=== PATIENT | male | born 1960 | race Caucasian/White ===

== ENCOUNTER 2019-08-06 16:18 | Inpatient (IN) | payer BC, OTHER ==
[2019-08-06] MEDS ORDERED: Sodium Chloride 0.9% 10 ML Syringe FLUSH PRN (16:46)
[2019-08-06] MEDS ORDERED: Pantoprazole 40 MG Vial IVPUSH ONE (16:46)
--- NOTE | 2019-08-06 16:52 | EDM.PDOC ---
ED HPI GENERAL MEDICAL PROBLEM - General Chief Complaint: Gastrointestinal Problem Stated Complaint: UNCONTROLLABLE BOWEL MOVEMENT Time Seen by Provider: 08/06/19 16:23 Source of Information: Reports: Patient History Limitations: Reports: No Limitations - History of Present Illness INITIAL COMMENTS - FREE TEXT/NARRATIVE: Patient is a 59-year-old male who presents to the emergency department with "uncontrollable diarrhea ". States his symptoms have been going on for approximately 1 week. He describes the stools as loose and "like motor oil ". Stools have been dark since the onset of symptoms. He denies any abdominal pain , nausea, or vomiting. For the last 3 to 4 days, he has been getting increasingly weak and dizzy upon standing. He is incontinent of stool most of the time. States he will get the urge to go, but when he stands up it runs out of him. He estimates that he has a BM every 2 hours. He is not on blood thinners. He has a history of alcohol use, however states he quit 2 weeks ago. He has never had a colonoscopy. He also has a history of hypertension and congestive heart failure, however states he had an echocardiogram done about 2 months ago and that was found to be normal. He is prescribed olmesartan and Lasix, however he has been out of these for the past week. He has no history of gastric ulcers that he is aware of. His primary care provider is Dr. Martinez. - Related Data Allergies Allergy/AdvReac Type Severity Reaction Status Date / Time No Known Allergies Allergy Verified 08/06/19 16:33 Home Meds: Home Meds Olmesartan Medoxomil [Benicar] 20 mg PO DAILY 03/16/18 [History] Furosemide [Lasix] 0 mg PO DAILY 08/06/19 [History] Past Medical History HEENT History: Reports: None Cardiovascular History: Reports: Heart Failure, High Cholesterol, Hypertension, Other (See Below) Other Cardiovascular History: Peripheral edema Respiratory History: Reports: SOB Gastrointestinal History: Reports: None Genitourinary History: Reports: Renal Calculus Musculoskeletal History: Reports: None Neurological History: Reports: None Psychiatric History: Reports: None Endocrine/Metabolic History: Reports: Obesity/BMI 30+ Hematologic History: Reports: None Immunologic History: Reports: None Oncologic (Cancer) History: Reports: None Dermatologic History: Reports: Other (See Below) Other Dermatologic History: Chronic Dry Skin - Infectious Disease History Infectious Disease History: Reports: Chicken Pox, Measles, Mumps - Past Surgical History Head Surgeries/Procedures: Reports: None Social & Family History - Family History Family Medical History: Noncontributory - Tobacco Use Smoking Status *Q: Current Every Day Smoker Years of Tobacco use: 40 Packs/Tins Daily: 1 - Caffeine Use Caffeine Use: Reports: None - Recreational Drug Use Recreational Drug Use: No ED ROS GENERAL - Review of Systems Review Of Systems: See Below Constitutional: Reports: Weakness. Denies: Fever, Chills HEENT: Reports: No Symptoms Respiratory: Reports: No Symptoms. Denies: Shortness of Breath, Cough Cardiovascular: Reports: Lightheadedness. Denies: Chest Pain, Dyspnea on Exertion, Palpitations Endocrine: Reports: No Symptoms GI/Abdominal: Reports: Black Stool, Diarrhea, Stool Incontinence. Denies: Abdominal Pain, Bloody Stool, Hematemesis, Nausea, Vomiting ED EXAM, GI/ABD - Physical Exam Exam: See Below Exam Limited By: No Limitations General Appearance: Alert, WD/WN, No Apparent Distress Respiratory/Chest: No Respiratory Distress, Lungs Clear, Normal Breath Sounds, No Accessory Muscle Use, Chest Non-Tender Cardiovascular: Normal Peripheral Pulses, Regular Rate, Rhythm, No Edema, No Gallop, No JVD, No Murmur, No Rub GI/Abdominal Exam: Normal Bowel Sounds, Soft, Non-Tender, No Organomegaly, No Distention, No Abnormal Bruit, No Mass, Pelvis Stable Rectal (Males) Exam: Normal Rectal Tone, Black Stool, Heme + Stool. No: Bloody Stool Neurological: Alert, Oriented, CN II-XII Intact, Normal Cognition, Normal Gait, Normal Reflexes, No Motor/Sensory Deficits Psychiatric: Normal Affect, Normal Mood Skin Exam: Warm, Dry, Intact, Normal Color, No Rash Course - Vital Signs Last Recorded V/S: Last Vital Signs Temp 98.6 F 08/06/19 20:56 Pulse 81 08/06/19 16:29 Resp 16 08/06/19 20:56 BP 120/74 08/06/19 20:56 Pulse Ox 98 08/06/19 20:56 Orthostatic Blood Pressure [ 84/70 Standing] Orthostatic Blood Pressure [ 118/77 Supine] - Orders/Labs/Meds Orders: Active Orders 24 hr Category Date Time Status Patient Status [ADT] Routine ADT 08/06/19 18:34 Active Antiembolic Devices [RC] PER UNIT ROUTINE Care 08/06/19 18:37 Active Bedrest Bedside Commode [RC] ASDIRECTED Care 08/06/19 18:31 Active Cardiac Monitoring [RC] . DIRECTED Care 08/06/19 16:55 Active Intake and Output [RC] 04,16 Care 08/06/19 18:36 Active Notify Provider Consults [RC] ASDIRECTED Care 08/06/19 18:38 Active Oxygen Therapy [RC] PRN Care 08/06/19 18:34 Active Peripheral IV Care [RC] Q2HR Care 08/06/19 16:46 Active VTE/DVT Education [RC] BID Care 08/06/19 18:34 Active Vital Signs [RC] Q4HR Care 08/06/19 18:34 Active Consult to Case Management/Road Crossing Guard [CONS] Cons 08/06/19 18:31 Active Routine Consult to Physician [CONS] Routine Cons 08/06/19 18:31 Active Nothing per Oral Now Diet [DIET] Diet 08/07/19 Breakfast Active CBC WITH AUTO DIFF [HEME] Q4H Lab 08/06/19 22:31 Ordered CBC WITH AUTO DIFF [HEME] Q4H Lab 08/07/19 02:31 Ordered CBC WITH AUTO DIFF [HEME] Q4H Lab 08/07/19 06:31 Ordered CBC WITH AUTO DIFF [HEME] Q4H Lab 08/07/19 10:31 Ordered CBC WITH AUTO DIFF [HEME] Q4H Lab 08/07/19 14:31 Ordered CBC WITH AUTO DIFF [HEME] Q4H Lab 08/07/19 18:31 Ordered CBC WITH AUTO DIFF [HEME] Q4H Lab 08/07/19 22:31 Ordered MAGNESIUM [CHEM] AM Lab 08/07/19 05:11 Ordered PATIENT RETYPE [BBK] Routine Lab 08/06/19 17:47 Ordered PHOSPHORUS [CHEM] AM Lab 08/07/19 05:11 Ordered Nicotine [Habitrol] Med 08/06/19 19:00 Active 21 mg TRDERM DAILY Pantoprazole [ProTONIX IV] Med 08/06/19 21:00 Active 40 mg IV Q12HR Potassium Chloride [KCl 10 MEQ in Water 100 ML] 10 meq Med 08/06/19 18:00 Active Premix Bag 1 bag IV Q1H Sodium Chloride 0.9% [Normal Saline] 1,000 ml Med 08/06/19 17:00 Active IV ASDIRECTED Sodium Chloride 0.9% [Saline Flush] Med 08/06/19 16:46 Active 10 ml FLUSH ASDIRECTED PRN Antiembolic Hose [OM.PC] Per Unit Routine Oth 08/06/19 18:36 Ordered Peripheral IV Insertion Adult [OM.PC] Stat Oth 08/06/19 16:45 Ordered Resuscitation Status Routine Resus Stat 08/06/19 18:31 Ordered Medication Orders Sodium Chloride (Normal Saline) 1,000 mls @ 999 mls/hr IV ASDIRECTED OFE Last Admin: 08/06/19 17:03 Dose: 999 mls/hr Potassium Chloride 10 meq/ (Premix) 100 mls @ 100 mls/hr IV Q1H OFE Stop: 08/07/19 01:59 Last Admin: 08/06/19 21:21 Dose: 100 mls/hr Infusion: 08/06/19 20:51 Dose: 100 mls/hr Admin: 08/06/19 19:51 Dose: 100 mls/hr Infusion: 08/06/19 18:59 Dose: 100 mls/hr Admin: 08/06/19 17:59 Dose: 100 mls/hr Magnesium Sulfate 4 gm/ Premix 50 mls @ 12.5 mls/hr IV ONETIME ONE Stop: 08/06/19 22:39 Last Admin: 08/06/19 21:16 Dose: 12.5 mls/hr Sodium Chloride (Normal Saline) 1,000 mls @ 250 mls/hr IV ASDIRECTED OFE Last Admin: 08/06/19 20:27 Dose: 250 mls/hr Miscellaneous Information (Remove Patch) 1 ea TRDERM DAILY [facility] Nicotine (Habitrol) 21 mg TRDERM DAILY OFE Last Admin: 08/06/19 20:53 Dose: Not Given Pantoprazole Sodium (Protonix Iv) 40 mg IV Q12HR OFE Last Admin: 08/06/19 21:18 Dose: 40 mg Sodium Chloride (Saline Flush) 10 ml FLUSH ASDIRECTED PRN PRN Reason: Keep Vein Open Last Admin: 08/06/19 17:04 Dose: 10 ml Labs: Laboratory Tests 08/06/19 08/06/19 08/06/19 Range/Units 16:59 16:59 16:59 WBC 5.45 (4.23-9.07) K/mm3 RBC 3.16 L (4.63-6.08) M/mm3 Hgb 9.9 L (13.7-17.5) gm/dl Hct 30.2 L (40.1-51.0) % MCV 95.6 H (79.0-92.2) fl MCH 31.3 (25.7-32.2) pg MCHC 32.8 (32.2-35.5) g/dl RDW Std Deviation 53.0 H (35.1-43.9) fL Plt Count 85 L (163-337) K/mm3 MPV 9.2 L (9.4-12.3) fl Neut % (Auto) 71.7 H (34.0-67.9) % Lymph % (Auto) 14.1 L (21.8-53.1) % [place] % (Auto) 11.9 (5.3-12.2) % Eos % (Auto) 1.5 (0.8-7.0) Baso % (Auto) 0.2 (0.1-1.2) % Neut # (Auto) 3.91 (1.78-5.38) K/mm3 Lymph # (Auto) 0.77 L (1.32-3.57) K/mm3 [place] # (Auto) 0.65 (0.30-0.82) K/mm3 Eos # (Auto) 0.08 (0.04-0.54) K/mm3 Baso # (Auto) 0.01 (0.01-0.08) K/mm3 Manual Slide Review Abnormal smear Sodium 132 L (136-145) mEq/L Potassium 2.7 L (3.5-5.1) mEq/L Chloride 96 L (98-107) mEq/L Carbon Dioxide 19 L (21-32) mEq/L Anion Gap 19.7 H (5-15) BUN 43 H (7-18) mg/dL Creatinine 1.9 H (0.7-1.3) mg/dL Est Cr Clr Drug Dosing 45.69 mL/min Estimated GFR (MDRD) 37 (>60) mL/min BUN/Creatinine Ratio 22.6 H (14-18) Glucose 129 H (74-106) mg/dL Calcium 8.8 (8.5-10.1) mg/dL Magnesium 0.8 L (1.8-2.4) mg/dl Total Bilirubin 0.7 (0.2-1.0) mg/dL AST 32 (15-37) U/L ALT 26 (16-63) U/L Alkaline Phosphatase 204 H (46-116) U/L C-Reactive Protein 6.7 H* (<1.0) mg/dL Total Protein 8.2 (6.4-8.2) g/dl Albumin 3.0 L (3.4-5.0) g/dl Globulin 5.2 gm/dL Albumin/Globulin Ratio 0.6 L (1-2) Blood Type A POSITIVE Gel Antibody Screen Negative Meds: Medications Generic Name Dose Route Start Last Admin Trade Name Freq PRN Reason Stop Dose Admin Sodium Chloride 1,000 mls @ 999 mls/hr 08/06/19 17:00 08/06/19 17:03 Normal Saline IV 999 mls/hr ASDIRECTED OFE Administration Potassium Chloride 10 meq/ 100 mls @ 100 mls/hr 08/06/19 18:00 08/06/19 21:21 Premix IV 08/07/19 01:59 100 mls/hr Q1H OFE Administration Magnesium Sulfate 4 gm/ Premix 50 mls @ 12.5 mls/hr 08/06/19 18:40 08/06/19 21:16 IV 08/06/19 22:39 12.5 mls/hr ONETIME ONE Administration Sodium Chloride 1,000 mls @ 250 mls/hr 08/06/19 20:30 08/06/19 20:27 Normal Saline IV 250 mls/hr ASDIRECTED OFE Administration Miscellaneous Information 1 ea 08/07/19 09:00 Remove Patch TRDERM DAILY OFE Nicotine 21 mg 08/06/19 19:00 08/06/19 20:53 Habitrol TRDERM Not Given DAILY OFE Pantoprazole Sodium 40 mg 08/06/19 21:00 08/06/19 21:18 Protonix Iv IV 40 mg Q12HR OFE Administration Sodium Chloride 10 ml 08/06/19 16:46 08/06/19 17:04 Saline Flush FLUSH 10 ml ASDIRECTED PRN Administration Keep Vein Open Discontinued Medications Generic Name Dose Route Start Last Admin Trade Name Danya PRN Reason Stop Dose Admin Magnesium Sulfate 4 gm/ Premix 50 mls @ 12.5 mls/hr 08/06/19 17:51 08/06/19 17:58 IV 08/06/19 21:50 12.5 mls/hr ONETIME ONE Administration Lactated Ringer's 1,000 mls @ 999 mls/hr 08/06/19 18:15 Ringers, Lactated IV ASDIRECTED OFE Pantoprazole Sodium 80 mg 08/06/19 16:46 08/06/19 17:03 Protonix Iv IVPUSH 08/06/19 16:47 80 mg BOLUS ONE Administration - Re-Assessments/Exams Free Text/Narrative Re-Assessment/Exam: Patient's history is suggestive of an upper GI bleed. Hemoccult completed at bedside was found to be grossly positive for occult blood. Stool was black and tarry in nature. Ordered a CBC, CMP, CRP, magnesium, type and screen, urinalysis, EKG, chest x-ray. We will give him a liter bolus of NS as well as Protonix 80 mg IV. 08/06/19 1800 Hematology is significant for hemoglobin low at 9.9, platelet low at 85, sodium 132, potassium 2.7, chloride 96, CO2 19, anion gap 19.7, BUN 43, creatinine 1.9 , magnesium0.8, alk phos high 204, CRP 6.7. I have ordered KCl 10 mEq IV x 8 bags and magnesium 4 g IV. Case discussed with on-call general surgeon, Dr. Reid. He recommend that we contact the hospitalist for admission and correction of his electrolyte abnormalities. He will consult on the patient. Called and spoke with Dr. Engel, hospitalist parks and recreation worker. She accepted the patient for admission. Departure - Departure Time of Disposition: 18:00 Disposition: Home, Self-Care 01 Condition: Good Clinical Impression: Upper GI bleed - Discharge Information Sepsis Event Note (ED) - Evaluation Sepsis Screening Result: No Definite Risk - Focused Exam Vital Signs: Vital Signs Temp Pulse Resp BP Pulse Ox 08/06/19 16:34 126/85 08/06/19 16:29 97.2 F 81 16 95 - My Orders Last 24 Hours: My Active Orders 08/06/19 16:45 Peripheral IV Insertion Adult [OM.PC] Stat 08/06/19 16:46 Peripheral IV Care [RC] Q2HR Sodium Chloride 0.9% [Saline Flush] 10 ml FLUSH ASDIRECTED PRN 08/06/19 16:55 Cardiac Monitoring [RC] . DIRECTED 08/06/19 17:00 Sodium Chloride 0.9% [Normal Saline] 1,000 ml IV ASDIRECTED 08/06/19 17:47 PATIENT RETYPE [BBK] Routine 08/06/19 18:00 Potassium Chloride [KCl 10 MEQ in Water 100 ML] 10 meq Premix Bag 1 bag IV Q1H - Assessment/Plan Last 24 Hours: My Active Orders 08/06/19 16:45 Peripheral IV Insertion Adult [OM.PC] Stat 08/06/19 16:46 Peripheral IV Care [RC] Q2HR Sodium Chloride 0.9% [Saline Flush] 10 ml FLUSH ASDIRECTED PRN 08/06/19 16:55 Cardiac Monitoring [RC] . DIRECTED 08/06/19 17:00 Sodium Chloride 0.9% [Normal Saline] 1,000 ml IV ASDIRECTED 08/06/19 17:47 PATIENT RETYPE [BBK] Routine 08/06/19 18:00 Potassium Chloride [KCl 10 MEQ in Water 100 ML] 10 meq Premix Bag 1 bag IV Q1H
[2019-08-06] MEDS ORDERED: Sodium Chloride 0.9% 1,000 ML IV SCH (17:00)
[2019-08-06] MEDS ORDERED: Magnesium Sulfate/Water 4 GM in Premix Bag 1 BAG IV ONE ×2 (17:51→18:40)
[2019-08-06] MEDS: Potassium Chloride 10 MEQ in Premix Bag 1 BAG IV SCH ×5 (17:59→23:33)
[2019-08-06] MEDS ORDERED: Lactated Ringers 1,000 ML IV SCH (18:15)
--- NOTE | 2019-08-06 20:22 | PCM.HP.2 ---
H&P History of Present Illness - General Date of Service: 08/06/19 Admit Problem/Dx: Admission Diagnosis/Problem Admission Diagnosis/Problem Melena - History of Present Illness Initial Comments - Free Text/Narative: This is a 59-year-old male with past medical history of congestive heart failure and alcoholism who comes to the emergency department complaining of continuous melanous stools since Saturday of this week. As per patient this came on suddenly while he was sitting down. He has been unable to control his bowel movements from 6-7/day and 3-5/night. Denies any prior episodes, colonoscopy or family history of colon cancer. - Related Data Allergies/Adverse Reactions: Allergies Allergy/AdvReac Type Severity Reaction Status Date / Time No Known Allergies Allergy Verified 08/06/19 16:33 Home Medications: Home Meds Olmesartan Medoxomil [Benicar] 20 mg PO DAILY 03/16/18 [History] Furosemide [Lasix] 0 mg PO DAILY 08/06/19 [History] Past Medical History HEENT History: Reports: None Cardiovascular History: Reports: Heart Failure, High Cholesterol, Hypertension, Other (See Below) Other Cardiovascular History: Peripheral edema Respiratory History: Reports: SOB Gastrointestinal History: Reports: None Genitourinary History: Reports: Renal Calculus Musculoskeletal History: Reports: None Neurological History: Reports: None Psychiatric History: Reports: None Endocrine/Metabolic History: Reports: Obesity/BMI 30+ Hematologic History: Reports: None Immunologic History: Reports: None Oncologic (Cancer) History: Reports: None Dermatologic History: Reports: Other (See Below) Other Dermatologic History: Chronic Dry Skin - Infectious Disease History Infectious Disease History: Reports: Chicken Pox, Measles, Mumps - Past Surgical History Head Surgeries/Procedures: Reports: None Social & Family History - Family History Family Medical History: Noncontributory - Tobacco Use Smoking Status *Q: Current Every Day Smoker Years of Tobacco use: 40 Packs/Tins Daily: 1 - Caffeine Use Caffeine Use: Reports: None - Recreational Drug Use Recreational Drug Use: No H&P Review of Systems - Review of Systems: Review Of Systems: See Below General: Reports: Weakness. Denies: Fever, Chills, Malaise, Fatigue, Night Sweats, Diaphoresis, Decreased Appetite, Weight Loss, Weight Gain HEENT: Denies: Dysphasia, Rhinitis, Post Nasal Drip, Sinus Congestion, Sore Throat, Vertigo, Visual Changes Pulmonary: Denies: Shortness of Breath, Wheezing, Pleuritic Chest Pain, Cough, Sputum, Hemoptysis Cardiovascular: Reports: Lightheadedness. Denies: Chest Pain, Palpitations, Dyspnea on Exertion, Orthopnea, PND, Edema, Syncope, Claudication, Blood Pressure Problem Gastrointestinal: Reports: Black Stool, Diarrhea, Melena, Stool Incontinence. Denies: Abdominal Pain, Anorexia, Bloody Stool, Constipation, Decreased Appetite , Difficulty Swallowing, Distension, Flatus, Hematemesis, Hematochezia, Nausea, Vomiting Genitourinary: Denies: Dysuria, Frequency, Burning, Pain, Urgency, Incontinence Musculoskeletal: Denies: Joint Pain, Joint Swelling, Muscle Pain, Muscle Stiffness Skin: Reports: Dryness, Pruritis, Rash, Wound, Change in Color, Lumps, Urticaria Psychiatric: Denies: Confusion, Depression, Mood Lability, Anxiety, Agitation Neurological: Denies: Confusion, Dizziness, Headache, Numbness, Paresthesia Exam - Exam Exam: See Below - Vital Signs Vital Signs: Last Vital Signs Temp 97.2 F 08/06/19 16:29 Pulse 81 08/06/19 16:29 Resp 16 08/06/19 16:29 BP 126/85 08/06/19 16:34 Pulse Ox 95 08/06/19 16:29 Weight: 108.862 kg - Exam Quality Assessment: Skin Breakdown. No: Supplemental Oxygen, Central Line/PICC , Urinary Catheter, DVT Prophylaxis General: Alert, Oriented, Cooperative. No: Mild Distress HEENT: Other (missing multiple teeth, halitosis). No: Conjunctiva Clear ( injected) Neck: Supple, Trachea Midline, Full Range of Motion. No: Lymphadenopathy Lungs: Clear to Auscultation. No: Crackles, Rales, Rhonchi, Rub, Wheezing Cardiovascular: Regular Rate, Regular Rhythm. No: Systolic Murmur, Diastolic Murmur, Rubs, Gallop/S3, Gallop/S4 GI/Abdominal Exam: Normal Bowel Sounds, Distended. No: Guarding, Rigid, Rebound ( fluid wave) Back Exam: Full Range of Motion Extremities: Pedal Edema Skin: Other (actinic keratosis lesions on both arms, scaling dry lesions throughout) Psychiatric: Alert Physical Exam Comments:: SKIN: - Severely dry throughout with multiple scaling areas - Previous fistulization scars on left axilla - Right groin with yellowish plaque and epidermal breakdown - Multiple stigmas of scarring - Lesions on BL arms appear like actinic keratosis OVERALL APPEARANCE: - Disheveled and unkept - Patient Data Result Diagrams: 08/07/19 14:43 08/07/19 10:29 Sepsis Event Note - Evaluation Sepsis Screening Result: No Definite Risk - Problem List (1) Upper GI bleed SNOMED Code(s): 71326521 ICD Code: K92.2 - GASTROINTESTINAL HEMORRHAGE, UNSPECIFIED Status: Acute Current Visit: Yes (2) Dry skin dermatitis SNOMED Code(s): 122665042 ICD Code: L85.3 - XEROSIS CUTIS Status: Acute Current Visit: Yes (3) Alcohol abuse SNOMED Code(s): 38096714 ICD Code: F10.10 - ALCOHOL ABUSE, UNCOMPLICATED Status: Acute Current Visit: Yes (4) Smoker SNOMED Code(s): 18711803 ICD Code: F17.200 - NICOTINE DEPENDENCE, UNSPECIFIED, UNCOMPLICATED Status : Acute Current Visit: Yes (5) Hypertension SNOMED Code(s): 80309555 ICD Code: I10 - ESSENTIAL (PRIMARY) HYPERTENSION Status: Acute Current Visit: No Qualifiers: Hypertension type: essential hypertension Qualified Code(s): I10 - Essential (primary) hypertension (6) Hyponatremia SNOMED Code(s): 33257848 ICD Code: E87.1 - HYPO-OSMOLALITY AND HYPONATREMIA Status: Acute Current Visit: Yes (7) Hypokalemia SNOMED Code(s): 43845546 ICD Code: E87.6 - HYPOKALEMIA Status: Acute Current Visit: Yes (8) Hypophosphatemia SNOMED Code(s): 1330614 ICD Code: E83.39 - OTHER DISORDERS OF PHOSPHORUS METABOLISM Status: Acute Current Visit: Yes (9) Hypomagnesemia SNOMED Code(s): 086553952 ICD Code: E83.42 - HYPOMAGNESEMIA Status: Acute Current Visit: Yes (10) Acute kidney injury SNOMED Code(s): 75992930, 98168702 ICD Code: N17.9 - ACUTE KIDNEY FAILURE, UNSPECIFIED Status: Acute Current Visit: Yes (11) Thrombocytopenia SNOMED Code(s): 067393961 ICD Code: D69.6 - THROMBOCYTOPENIA, UNSPECIFIED Status: Acute Current Visit: Yes (12) Axillary hidradenitis suppurativa SNOMED Code(s): 327194231 ICD Code: L73.2 - HIDRADENITIS SUPPURATIVA Status: Acute Current Visit: Yes (13) Poor personal hygiene SNOMED Code(s): 880686497 ICD Code: R46.0 - VERY LOW LEVEL OF PERSONAL HYGIENE Status: Acute Current Visit: Yes (14) Orthostatic hypotension SNOMED Code(s): 03544421 ICD Code: I95.1 - ORTHOSTATIC HYPOTENSION Status: Acute Current Visit: Yes Problem List Initiated/Reviewed/Updated: Yes Assessment/Plan Comment:: ASSESSMENT - Multiple melena episodes prior to admission - Daily drinker and smoker up to 2 weeks ago, currently not drinking and smoking only 1 cigarette a day - Hb on admission 9.9 with thrombocytopenia - Na 132, K 2.7, Cl 96, CO2 19, Mg 0.8, PO4 1.5 and GFR 37 - Patient appears very disheveled - States he moved in to a trailer about 5 days ago - Has not taken a shower in over a week as per patient, appears to be longer - Equivocal heart failure history, patient states " I used to have it but not anymore" Upper GI bleed Alcohol abuse Orthostatic hypotension Thrombocytopenia - Consult surgery for endoscopic evaluation - Bowel prep to start today - Scheduled IV pantoprazole BID - Trend Hb every 4 hours - Goal Hb > 8 - Abdominal US to evaluate portal circulation and liver parenchyma - [facility] protocol - Spiritual care consult - Case management consult Acute kidney injury Hyponatremia Hypokalemia Hypomagnesemia Hypophosphatemia - Replace volume with NS - Replace electrolytes - Monitor urine output - Renally dosed medications - Repeat labs as needed Orthostatic hypotension Hypertension - Replace volume with NS - Hold home medications Dry skin dermatitis - Request records Smoker - Nicotine patch Poor personal hygiene Hypoalbuminemia - information services tech consult - Dietary consult PROPHYLAXIS DVT- Pharmacologic contraindicated, compression stockings GI- Pantoprazole IV BID CODE STATUS: FULL CODE DISPOSITION: Patient will be admitted to ICU for monitorization, endoscopies likely to be performed tomorrow. - Mortality Measure Prognosis:: Good
[2019-08-06] MEDS: Sodium Chloride 0.9% 1,000 ML IV SCH (20:27)
[2019-08-06] MEDS: Nicotine 21 MG/24 Hr Patch TRDERM SCH (20:53)
--- NOTE | 2019-08-06 21:02 | US ---
Abdominal ultrasound: Multiple real-time images of the abdomen were obtained. Comparison: No previous abdominal imaging is available. Findings: Liver shows no focal parenchymal abnormality. Gallbladder contains no shadowing gallstones. No gallbladder wall thickening or biliary duct dilatation is seen. There are some episodes of reversal of flow within the inferior vena cava raising the possibility of right heart dysfunction. Please correlate. Portal vein shows normal hepatopedal flow. Pancreas that is seen appears unremarkable. Right kidney shows no hydronephrosis or mass and has a length of 13.3 cm. Left kidney shows no hydronephrosis or mass. Left kidney measures 13.0 cm in length. Aorta not optimally seen. No discrete aneurysm is appreciated. Spleen size measures at the upper limits of normal at 13.0 cm. Impression: 1. Some episodes of reversal of flow within the inferior vena cava raising the possibility of right heart dysfunction. Please correlate. 2. Normal hepatopedal flow within the main portal vein. 3. Spleen size at the upper limits of normal at 13.0 cm. 4. No additional abnormality is appreciated on abdominal ultrasound exam. Diagnostic code #3 This report was dictated in MDT
[2019-08-06] MEDS: Pantoprazole 40 MG Vial IV SCH (21:18)
[2019-08-06] MEDS ORDERED: Polyethylene Glycol/Electrolytes 4,000 ML Bottle PO ONE (21:54)
[2019-08-07] MEDS: Potassium Chloride 10 MEQ in Premix Bag 1 BAG IV SCH ×9 (00:35→19:47)
[2019-08-07] MEDS: Sodium Chloride 0.9% 1,000 ML IV SCH ×3 (04:51→13:24)
[2019-08-07] MEDS: Pantoprazole 40 MG Vial IV SCH ×2 (08:59→21:27)
--- NOTE | 2019-08-07 11:02 | PCM.PREANE ---
Preanesthetic Assessment - Procedure Proposed Procedure: EGD posssible Colonoscopy - Anesthesia/Transfusion/Family Hx Anesthesia History: Prior Anesthesia Without Reaction Family History of Anesthesia Reaction: No Transfusion History: No Prior Transfusion(s) - Review of Systems General: No Symptoms Pulmonary: Cough (Chronic, Smoker 1 ppd, none x 1 week. Productive at times. ) Cardiovascular: No Symptoms (History of CHF. Patient states had ECHO and was told his heart is normal. ECHO report 2019 Normal LV and RV systolic function, Technically difficult study documentation. ) Gastrointestinal: Diarrhea, Melena Neurological: No Symptoms Other: Reports: None (ETHO none x 2 weeks per patient. Thrombocytopenia. Electrolyte abnormalities. ) - Physical Assessment NPO Status Date: 08/07/19 NPO Status Time: 09:00 (Prep) Vital Signs: Last Vital Signs Temp 36.9 C 08/07/19 04:00 Pulse 74 08/07/19 08:00 Resp 16 08/07/19 08:00 BP 111/82 08/07/19 08:08 Pulse Ox 95 08/07/19 08:07 Orthostatic Blood Pressure [ 84/70 Standing] Orthostatic Blood Pressure [ 118/77 Supine] Height: 1.8 m Weight: 102.965 kg ASA Class: 3E Mental Status: Alert & Oriented x3 Airway Class: Mallampati = 2 Dentition: Reports: Broken Tooth/Teeth, Missing Tooth/Teeth Thyro-Mental Finger Breadths: 3 Mouth Opening Finger Breadths: 3 ROM/Head Extension: Full Lungs: Clear to Auscultation, Normal Respiratory Effort Cardiovascular: Regular Rate, Regular Rhythm - Lab Values: Laboratory Last Values WBC 5.46 K/mm3 (4.23-9.07) 08/07/19 06:30 RBC 2.81 M/mm3 (4.63-6.08) L 08/07/19 06:30 Hgb 8.7 gm/dl (13.7-17.5) L 08/07/19 06:30 Hct 27.3 % (40.1-51.0) L 08/07/19 06:30 MCV 97.2 fl (79.0-92.2) H 08/07/19 06:30 MCH 31.0 pg (25.7-32.2) 08/07/19 06:30 MCHC 31.9 g/dl (32.2-35.5) L 08/07/19 06:30 RDW Std Deviation 53.9 fL (35.1-43.9) H 08/07/19 06:30 Plt Count 68 K/mm3 (163-337) L 08/07/19 06:30 MPV 9.3 fl (9.4-12.3) L 08/07/19 06:30 Neut % (Auto) 73.2 % (34.0-67.9) H 08/07/19 06:30 Lymph % (Auto) 14.3 % (21.8-53.1) L 08/07/19 06:30 [place] % (Auto) 10.3 % (5.3-12.2) 08/07/19 06:30 Eos % (Auto) 1.5 (0.8-7.0) 08/07/19 06:30 Baso % (Auto) 0.2 % (0.1-1.2) 08/07/19 06:30 Neut # (Auto) 4.00 K/mm3 (1.78-5.38) 08/07/19 06:30 Lymph # (Auto) 0.78 K/mm3 (1.32-3.57) L 08/07/19 06:30 [place] # (Auto) 0.56 K/mm3 (0.30-0.82) 08/07/19 06:30 Eos # (Auto) 0.08 K/mm3 (0.04-0.54) 08/07/19 06:30 Baso # (Auto) 0.01 K/mm3 (0.01-0.08) 08/07/19 06:30 Manual Slide Review Abnormal smear 08/07/19 06:30 PT 11.4 SECONDS (9.7-12.0) 08/06/19 19:00 INR 1.05 08/06/19 19:00 Puncture Site Lt radial 08/06/19 20:21 ABG pH 7.37 (7.35-7.45) 08/06/19 20:21 ABG pCO2 34.6 mmHg (35.0-45.0) L 08/06/19 20:21 ABG pO2 80.0 mmHg (80.0-100.0) 08/06/19 20:21 ABG HCO3 19.7 meq/L (22.0-26.0) L 08/06/19 20:21 ABG O2 Saturation 94.8 % (96.0-97.0) L 08/06/19 20:21 ABG Base Excess -4.4 (-2-2.0) L 08/06/19 20:21 Travis Test Positive 08/06/19 20:21 O2 Delivery Device Room air 08/06/19 20:21 FiO2 0.00 % (21.00-100.00) L 08/06/19 20:21 Sodium 131 mEq/L (136-145) L 08/07/19 03:29 Potassium 3.3 mEq/L (3.5-5.1) L 08/07/19 03:29 Chloride 97 mEq/L (98-107) L 08/07/19 03:29 Carbon Dioxide 20 mEq/L (21-32) L 08/07/19 03:29 Anion Gap 17.3 (5-15) H 08/07/19 03:29 BUN 33 mg/dL (7-18) H 08/07/19 03:29 Creatinine 1.7 mg/dL (0.7-1.3) H 08/07/19 03:29 Est Cr Clr Drug Dosing 51.06 mL/min 08/07/19 03:29 Estimated GFR (MDRD) 42 mL/min (>60) 08/07/19 03:29 BUN/Creatinine Ratio 19.4 (14-18) H 08/07/19 03:29 Glucose 110 mg/dL (74-106) H 08/07/19 03:29 Calcium 8.4 mg/dL (8.5-10.1) L 08/07/19 03:29 Phosphorus 1.3 mg/dL (2.6-4.7) L 08/07/19 03:29 Magnesium 2.6 mg/dl (1.8-2.4) H 08/07/19 03:29 Total Bilirubin 0.7 mg/dL (0.2-1.0) 08/06/19 16:59 GGT 112 U/L (15-85) H 08/06/19 19:00 AST 32 U/L (15-37) 08/06/19 16:59 ALT 26 U/L (16-63) 08/06/19 16:59 Alkaline Phosphatase 204 U/L (46-116) H 08/06/19 16:59 C-Reactive Protein 6.7 mg/dL (<1.0) H* 08/06/19 16:59 Total Protein 8.2 g/dl (6.4-8.2) 08/06/19 16:59 Albumin 3.0 g/dl (3.4-5.0) L 08/06/19 16:59 Globulin 5.2 gm/dL 08/06/19 16:59 Albumin/Globulin Ratio 0.6 (1-2) L 08/06/19 16:59 Urine Color Yellow (Yellow) 08/06/19 19:44 Urine Appearance Clear (Clear) 08/06/19 19:44 Urine pH 6.0 (5.0-8.0) 08/06/19 19:44 Ur Specific [place] 1.015 (1.005-1.030) 08/06/19 19:44 Urine Protein 2+ (Negative) H 08/06/19 19:44 Urine Glucose (UA) Negative (Negative) 08/06/19 19:44 Urine Ketones Trace (Negative) H 08/06/19 19:44 Urine Occult Blood 2+ (Negative) H 08/06/19 19:44 Urine Nitrite Negative (Negative) 08/06/19 19:44 Urine Bilirubin Negative (Negative) 08/06/19 19:44 Urine Urobilinogen 0.2 (0.2-1.0) 08/06/19 19:44 Ur Leukocyte Esterase Negative (Negative) 08/06/19 19:44 Urine RBC 5-10 /hpf (0-5) H 08/06/19 19:44 Urine WBC 0-5 /hpf (0-5) 08/06/19 19:44 Ur Squamous Epith Cells 0-5 /hpf (0-5) 08/06/19 19:44 Urine Bacteria Few /hpf (FEW) 08/06/19 19:44 Urine Mucus Few /hpf (FEW) 08/06/19 19:44 Urine Opiates Screen Negative (ECMEGJ=976) 08/06/19 19:44 Ur Buprenorphine Scrn Negative (CUTOFF=10) 08/06/19 19:44 Ur Oxycodone Screen Negative (JCD8TJ=525) 08/06/19 19:44 Urine Methadone Screen Negative (BCW0CO=215) 06/11/20 19:44 Ur Propoxyphene Screen Negative (RSUVFV=267) 08/06/19 19:44 Ur Barbiturates Screen Negative (PVXIJA=069) 08/06/19 19:44 Ur Tricyclics Screen Negative (DUXDQG=343) 08/06/19 19:44 Ur Phencyclidine Scrn Negative (CUTOFF=25) 08/06/19 19:44 Ur Amphetamine Screen Negative (XPMOLC=773) 08/06/19 19:44 U Methamphetamines Scrn Negative (DOPYZL=990) 08/06/19 19:44 U Benzodiazepines Scrn Negative (XAORNO=865) 08/06/19 19:44 U Cocaine Metab Screen Negative (GSNWFM=555) 08/06/19 19:44 U Marijuana (THC) Screen Negative (CUTOFF=50) 08/06/19 19:44 Ethyl Alcohol 0.00 gm% (0.00) 08/06/19 19:00 Blood Type A POSITIVE 08/06/19 16:59 Gel Antibody Screen Negative 08/06/19 16:59 - Allergies Allergies/Adverse Reactions: Allergies Allergy/AdvReac Type Severity Reaction Status Date / Time No Known Allergies Allergy Verified 08/06/19 16:33 - Acknowledgements Anesthesia Type Planned: MAC Pt an Appropriate Candidate for the Planned Anesthesia: Yes Alternatives and Risks of Anesthesia Discussed w Pt/Guardian: Yes Pt/Guardian Understands and Agrees with Anesthesia Plan: Yes Additional Comments: Electrolyte abnormalities optimized per hospitalist service. Dr. Reid aware of thrombocytopenia and wishes to proceed with EGD as soon as possible. PreAnesthesia Questionnaire HEENT History: Reports: None Other HEENT History: 3 months ago, pt woke up and had no vision in L eye Cardiovascular History: Reports: Heart Failure, High Cholesterol, Hypertension, Other (See Below) Other Cardiovascular History: Peripheral edema Respiratory History: Reports: SOB Gastrointestinal History: Reports: None Genitourinary History: Reports: Renal Calculus Musculoskeletal History: Reports: None Neurological History: Reports: None Psychiatric History: Reports: None Endocrine/Metabolic History: Reports: Obesity/BMI 30+ Hematologic History: Reports: None Immunologic History: Reports: None Oncologic (Cancer) History: Reports: None Dermatologic History: Reports: Other (See Below) Other Dermatologic History: Chronic Dry Skin - Infectious Disease History Infectious Disease History: Reports: Chicken Pox, Measles, Mumps - Past Surgical History Head Surgeries/Procedures: Reports: None - SUBSTANCE USE Smoking Status *Q: Current Every Day Smoker Tobacco Use Within Last Twelve Months: Cigarettes Date of Last Drink: 07/23/19 Recreational Drug Use History: No - HOME MEDS Home Medications: Home Meds Olmesartan Medoxomil [Benicar] 20 mg PO DAILY 03/16/18 [History] Furosemide [Lasix] 0 mg PO DAILY 08/06/19 [History] - CURRENT (IN HOUSE) MEDS Current Meds: Current Medications Sodium Chloride (Normal Saline) 1,000 mls @ 250 mls/hr IV ASDIRECTED [facility] Last Admin: 08/07/19 09:07 Dose: 250 mls/hr Miscellaneous Information (Remove Patch) 1 ea TRDERM DAILY [facility] Nicotine (Habitrol) 21 mg TRDERM DAILY [facility] Last Admin: 08/06/19 20:53 Dose: Not Given Pantoprazole Sodium (Protonix Iv) 40 mg IV Q12HR [facility] Last Admin: 08/07/19 08:59 Dose: 40 mg Sodium Chloride (Saline Flush) 10 ml FLUSH ASDIRECTED PRN PRN Reason: Keep Vein Open Last Admin: 08/06/19 17:04 Dose: 10 ml Discontinued Medications Sodium Chloride (Normal Saline) 1,000 mls @ 999 mls/hr IV ASDIRECTED [facility] Last Admin: 08/06/19 17:03 Dose: 999 mls/hr Magnesium Sulfate 4 gm/ Premix 50 mls @ 12.5 mls/hr IV ONETIME ONE Stop: 08/06/19 21:50 Last Admin: 08/06/19 17:58 Dose: 12.5 mls/hr Potassium Chloride 10 meq/ (Premix) 100 mls @ 100 mls/hr IV Q1H [facility] Stop: 08/07/19 01:59 Last Admin: 08/07/19 03:54 Dose: 100 mls/hr Lactated Ringer's (Ringers, Lactated) 1,000 mls @ 999 mls/hr IV ASDIRECTED [facility] Magnesium Sulfate 4 gm/ Premix 50 mls @ 12.5 mls/hr IV ONETIME ONE Stop: 08/06/19 22:39 Last Admin: 08/06/19 21:16 Dose: 12.5 mls/hr Pantoprazole Sodium (Protonix Iv) 80 mg IVPUSH BOLUS ONE Stop: 08/06/19 16:47 Last Admin: 08/06/19 17:03 Dose: 80 mg Polyethylene Glycol/Electrolytes (Golytely) 4,000 ml PO ONETIME ONE Stop: 08/06/19 21:55 Last Admin: 08/06/19 22:28 Dose: 4,000 ml
--- NOTE | 2019-08-07 11:55 | PCM.PN ---
- General Info Date of Service: 08/07/19 Subjective Update: Feeling OK Slept OK Tolerating bowel prep - Patient Data Vitals - Most Recent: Last Vital Signs Temp 98.5 F 08/07/19 04:00 Pulse 74 08/07/19 08:00 Resp 16 08/07/19 08:00 BP 111/82 08/07/19 08:08 Pulse Ox 95 08/07/19 08:07 Weight - Most Recent: 108.862 kg - Exam Physical Findings Comments:: Quality Assessment: Skin Breakdown. No: Supplemental Oxygen, Central Line/PICC , Urinary Catheter, DVT Prophylaxis General: Alert, Oriented, Cooperative. No: Mild Distress HEENT: Other (missing multiple teeth, halitosis). No: Conjunctiva Clear ( injected) Neck: Supple, Trachea Midline, Full Range of Motion. No: Lymphadenopathy Lungs: Clear to Auscultation. No: Crackles, Rales, Rhonchi, Rub, Wheezing Cardiovascular: Regular Rate, Regular Rhythm. No: Systolic Murmur, Diastolic Murmur, Rubs, Gallop/S3, Gallop/S4 GI/Abdominal Exam: Normal Bowel Sounds, Distended. No: Guarding, Rigid, Rebound ( fluid wave) Back Exam: Full Range of Motion Extremities: Pedal Edema Skin: Other (actinic keratosis lesions on both arms, scaling dry lesions throughout) Psychiatric: Alert Physical Exam Comments:: SKIN: - Severely dry throughout with multiple scaling areas - Previous fistulization scars on left axilla - Right groin with yellowish plaque and epidermal breakdown - Multiple stigmas of scarring - Lesions on BL arms appear like actinic keratosis OVERALL APPEARANCE: - Disheveled and unkept Sepsis Event Note - Evaluation Sepsis Screening Result: No Definite Risk - Problem List & Annotations (1) Upper GI bleed SNOMED Code(s): 83942282 Code(s): K92.2 - GASTROINTESTINAL HEMORRHAGE, UNSPECIFIED Status: Acute Current Visit: Yes (2) Dry skin dermatitis SNOMED Code(s): 957137532 Code(s): L85.3 - XEROSIS CUTIS Status: Acute Current Visit: Yes (3) Alcohol abuse SNOMED Code(s): 14400128 Code(s): F10.10 - ALCOHOL ABUSE, UNCOMPLICATED Status: Acute Current Visit: Yes (4) Smoker SNOMED Code(s): 44575397 Code(s): F17.200 - NICOTINE DEPENDENCE, UNSPECIFIED, UNCOMPLICATED Status: Acute Current Visit: Yes (5) Hypertension SNOMED Code(s): 04688679 Code(s): I10 - ESSENTIAL (PRIMARY) HYPERTENSION Status: Acute Current Visit: No Qualifiers: Hypertension type: essential hypertension Qualified Code(s): I10 - Essential (primary) hypertension (6) Hyponatremia SNOMED Code(s): 12810216 Code(s): E87.1 - HYPO-OSMOLALITY AND HYPONATREMIA Status: Acute Current Visit: Yes (7) Hypokalemia SNOMED Code(s): 53891882 Code(s): E87.6 - HYPOKALEMIA Status: Acute Current Visit: Yes (8) Hypophosphatemia SNOMED Code(s): 9629622 Code(s): E83.39 - OTHER DISORDERS OF PHOSPHORUS METABOLISM Status: Acute Current Visit: Yes (9) Hypomagnesemia SNOMED Code(s): 598771831 Code(s): E83.42 - HYPOMAGNESEMIA Status: Acute Current Visit: Yes (10) Acute kidney injury SNOMED Code(s): 02508879, 73336326 Code(s): N17.9 - ACUTE KIDNEY FAILURE, UNSPECIFIED Status: Acute Current Visit: Yes (11) Thrombocytopenia SNOMED Code(s): 165346386 Code(s): D69.6 - THROMBOCYTOPENIA, UNSPECIFIED Status: Acute Current Visit: Yes (12) Axillary hidradenitis suppurativa SNOMED Code(s): 675003337 Code(s): L73.2 - HIDRADENITIS SUPPURATIVA Status: Acute Current Visit: Yes (13) Poor personal hygiene SNOMED Code(s): 511136287 Code(s): R46.0 - VERY LOW LEVEL OF PERSONAL HYGIENE Status: Acute Current Visit: Yes (14) Orthostatic hypotension SNOMED Code(s): 39541257 Code(s): I95.1 - ORTHOSTATIC HYPOTENSION Status: Acute Current Visit: Yes - Problem List Review Problem List Initiated/Reviewed/Updated: Yes - Assessment Assessment:: ASSESSMENT 08/06/2019 - Multiple melena episodes prior to admission - Daily drinker and smoker up to 2 weeks ago, currently not drinking and smoking only 1 cigarette a day - Hb on admission 9.9 with thrombocytopenia - Na 132, K 2.7, Cl 96, CO2 19, Mg 0.8, PO4 1.5 and GFR 37 - Patient appears very disheveled - States he moved in to a trailer about 5 days ago - Has not taken a shower in over a week as per patient, appears to be longer - Equivocal heart failure history, patient states " I used to have it but not anymore" 08/06/2019 - Hb down from 9.8 to 8.2 - Platelets down from 83 to 68 - Electrolytes continue to be abnormal - GFR mildly improved - Abdominal US normal except for borderline splenomegaly - Endoscopic procedures today - Plan Plan:: Upper GI bleed Alcohol abuse Orthostatic hypotension Thrombocytopenia - Scheduled IV pantoprazole BID - Trend Hb every 4 hours - Goal Hb > 8 - [facility] protocol - Spiritual care consult - Case management consult Acute kidney injury Hyponatremia Hypokalemia Hypomagnesemia Hypophosphatemia - Replace volume with NS - Replace electrolytes - Monitor urine output - Renally dosed medications - Repeat labs as needed Orthostatic hypotension Hypertension - Replace volume with NS - Hold home medications Dry skin dermatitis - Request records Smoker - Nicotine patch Poor personal hygiene Hypoalbuminemia - director of community services consult - Dietary consult PROPHYLAXIS DVT- Pharmacologic contraindicated, compression stockings GI- Pantoprazole IV BID CODE STATUS: FULL CODE DISPOSITION: Patient will remain admitted to ICU for monitorization, likely OK to downgrade after endoscopies.
--- NOTE | 2019-08-07 12:16 | PCM.CONS ---
H&P History of Present Illness - General Date of Service: 08/07/19 Admit Problem/Dx: Admission Diagnosis/Problem Admission Diagnosis/Problem Melena Source of Information: Patient History Limitations: Reports: No Limitations - History of Present Illness Duration of Symptoms: Reports: Day(s): Other HPI/Comments: Mr. Schreiber is a 59 yo man who presented to the emergency room last night with frequent diarrhea and description of black, tarry stool that has been going on for a few days. This have never happened before. He reported some associated lightheadedness and dizziness, and in the emergency room his Hgb was a little over 9 g/dL, down from a baseline of about 13 g/dL noted on lab work from a while back. The patient has never had a colonoscopy. He appears dirty and disheveled. He reports a chronic history of alcohol abuse, but has no known history of associated liver disease. He denies pain, nausea, vomiting, hematemesis. He has no history of peptic ulcer disease. He does have medical care established at the [facility] in [facility] and he reports a history of congestive heart failure. He is currently hemodynamically stable, and appears dehydrated on exam and based on lab works. - Related Data Allergies/Adverse Reactions: Allergies Allergy/AdvReac Type Severity Reaction Status Date / Time No Known Allergies Allergy Verified 08/06/19 16:33 Home Medications: Home Meds Olmesartan Medoxomil [Benicar] 20 mg PO DAILY 03/16/18 [History] Furosemide [Lasix] 0 mg PO DAILY 08/06/19 [History] Past Medical History HEENT History: Reports: None Other HEENT History: 3 months ago, pt woke up and had no vision in L eye Cardiovascular History: Reports: Heart Failure, High Cholesterol, Hypertension, Other (See Below) Other Cardiovascular History: Peripheral edema Respiratory History: Reports: SOB Gastrointestinal History: Reports: None Genitourinary History: Reports: Renal Calculus Musculoskeletal History: Reports: None Neurological History: Reports: None Psychiatric History: Reports: None Endocrine/Metabolic History: Reports: Obesity/BMI 30+ Hematologic History: Reports: None Immunologic History: Reports: None Oncologic (Cancer) History: Reports: None Dermatologic History: Reports: Other (See Below) Other Dermatologic History: Chronic Dry Skin - Infectious Disease History Infectious Disease History: Reports: Chicken Pox, Measles, Mumps - Past Surgical History Head Surgeries/Procedures: Reports: None Social & Family History - Family History Family Medical History: Noncontributory - Tobacco Use Smoking Status *Q: Current Every Day Smoker Years of Tobacco use: 40 Packs/Tins Daily: 1 Used Tobacco, but Quit: Yes Month/Year Tobacco Last Used: July 27 2019 - Caffeine Use Caffeine Use: Reports: None - Alcohol Use Date of Last Drink: 07/23/19 - Recreational Drug Use Recreational Drug Use: No H&P Review of Systems - Review of Systems: Review Of Systems: See Below General: Reports: Weakness HEENT: Reports: No Symptoms Pulmonary: Reports: No Symptoms Cardiovascular: Reports: Lightheadedness Gastrointestinal: Reports: Black Stool Genitourinary: Reports: No Symptoms Musculoskeletal: Reports: No Symptoms Skin: Reports: Wound Exam - Exam Exam: See Below - Vital Signs Vital Signs: Last Vital Signs Temp 36.9 C 08/07/19 04:00 Pulse 74 08/07/19 08:00 Resp 16 08/07/19 08:00 BP 111/82 08/07/19 08:08 Pulse Ox 95 08/07/19 08:07 Orthostatic Blood Pressure [ 84/70 Standing] Orthostatic Blood Pressure [ 118/77 Supine] Weight: 108.862 kg - Exam General: Alert, Oriented, Cooperative HEENT: Conjunctiva Clear Neck: Trachea Midline Lungs: Clear to Auscultation Cardiovascular: Regular Rate GI/Abdominal Exam: Other (fluid wave/ascites) Rectal (Males) Exam: Deferred Skin: Other (dry, scaly skin with decreased turgor. Hyperpigmented lichenification bilateral lower extremities. Hidradenitis affecting axillae and groin, worse at groin) - Patient Data Lab Results Last 24 hrs: Laboratory Results - last 24 hr 08/06/19 08/06/19 08/06/19 Range/Units 16:59 16:59 16:59 WBC 5.45 (4.23-9.07) K/mm3 RBC 3.16 L (4.63-6.08) M/mm3 Hgb 9.9 L (13.7-17.5) gm/dl Hct 30.2 L (40.1-51.0) % MCV 95.6 H (79.0-92.2) fl MCH 31.3 (25.7-32.2) pg MCHC 32.8 (32.2-35.5) g/dl RDW Std Deviation 53.0 H (35.1-43.9) fL Plt Count 85 L (163-337) K/mm3 MPV 9.2 L (9.4-12.3) fl Neut % (Auto) 71.7 H (34.0-67.9) % Lymph % (Auto) 14.1 L (21.8-53.1) % [place] % (Auto) 11.9 (5.3-12.2) % Eos % (Auto) 1.5 (0.8-7.0) Baso % (Auto) 0.2 (0.1-1.2) % Neut # (Auto) 3.91 (1.78-5.38) K/mm3 Lymph # (Auto) 0.77 L (1.32-3.57) K/mm3 [place] # (Auto) 0.65 (0.30-0.82) K/mm3 Eos # (Auto) 0.08 (0.04-0.54) K/mm3 Baso # (Auto) 0.01 (0.01-0.08) K/mm3 Manual Slide Review Abnormal smear PT (9.7-12.0) SECONDS INR Puncture Site ABG pH (7.35-7.45) ABG pCO2 (35.0-45.0) mmHg ABG pO2 (80.0-100.0) mmHg ABG HCO3 (22.0-26.0) meq/L ABG O2 Saturation (96.0-97.0) % ABG Base Excess (-2-2.0) Travis Test O2 Delivery Device FiO2 (21.00-100.00) % Sodium 132 L (136-145) mEq/L Potassium 2.7 L (3.5-5.1) mEq/L Chloride 96 L (98-107) mEq/L Carbon Dioxide 19 L (21-32) mEq/L Anion Gap 19.7 H (5-15) BUN 43 H (7-18) mg/dL Creatinine 1.9 H (0.7-1.3) mg/dL Est Cr Clr Drug Dosing 45.69 mL/min Estimated GFR (MDRD) 37 (>60) mL/min BUN/Creatinine Ratio 22.6 H (14-18) Glucose 129 H (74-106) mg/dL Calcium 8.8 (8.5-10.1) mg/dL Phosphorus (2.6-4.7) mg/dL Magnesium 0.8 L (1.8-2.4) mg/dl Total Bilirubin 0.7 (0.2-1.0) mg/dL GGT (15-85) U/L AST 32 (15-37) U/L ALT 26 (16-63) U/L Alkaline Phosphatase 204 H (46-116) U/L C-Reactive Protein 6.7 H* (<1.0) mg/dL Total Protein 8.2 (6.4-8.2) g/dl Albumin 3.0 L (3.4-5.0) g/dl Globulin 5.2 gm/dL Albumin/Globulin Ratio 0.6 L (1-2) Urine Color (Yellow) Urine Appearance (Clear) Urine pH (5.0-8.0) Ur Specific [place] (1.005-1.030) Urine Protein (Negative) Urine Glucose (UA) (Negative) Urine Ketones (Negative) Urine Occult Blood (Negative) Urine Nitrite (Negative) Urine Bilirubin (Negative) Urine Urobilinogen (0.2-1.0) Ur Leukocyte Esterase (Negative) Urine RBC (0-5) /hpf Urine WBC (0-5) /hpf Ur Squamous Epith Cells (0-5) /hpf Urine Bacteria (FEW) /hpf Urine Mucus (FEW) /hpf Urine Opiates Screen (UQOHNH=508) Ur Buprenorphine Scrn (CUTOFF=10) Ur Oxycodone Screen (ZOP4QO=293) Urine Methadone Screen (FWY6AX=378) Ur Propoxyphene Screen (NMEHUZ=065) Ur Barbiturates Screen (NYVAWR=252) Ur Tricyclics Screen (BISWQN=664) Ur Phencyclidine Scrn (CUTOFF=25) Ur Amphetamine Screen (VSXZIP=727) U Methamphetamines Scrn (EVPZSJ=540) U Benzodiazepines Scrn (KMXGIN=182) U Cocaine Metab Screen (VOEZLF=138) U Marijuana (THC) Screen (CUTOFF=50) Ethyl Alcohol (0.00) gm% Blood Type A POSITIVE Gel Antibody Screen Negative 08/06/19 08/06/19 08/06/19 Range/Units 19:00 19:00 19:00 WBC 5.85 (4.23-9.07) K/mm3 RBC 3.02 L (4.63-6.08) M/mm3 Hgb 9.3 L (13.7-17.5) gm/dl Hct 29.0 L (40.1-51.0) % MCV 96.0 H (79.0-92.2) fl MCH 30.8 (25.7-32.2) pg MCHC 32.1 L (32.2-35.5) g/dl RDW Std Deviation 53.6 H (35.1-43.9) fL Plt Count 76 L (163-337) K/mm3 MPV 9.6 (9.4-12.3) fl Neut % (Auto) 74.4 H (34.0-67.9) % Lymph % (Auto) 13.3 L (21.8-53.1) % [place] % (Auto) 10.4 (5.3-12.2) % Eos % (Auto) 1.2 (0.8-7.0) Baso % (Auto) 0.2 (0.1-1.2) % Neut # (Auto) 4.35 (1.78-5.38) K/mm3 Lymph # (Auto) 0.78 L (1.32-3.57) K/mm3 [place] # (Auto) 0.61 (0.30-0.82) K/mm3 Eos # (Auto) 0.07 (0.04-0.54) K/mm3 Baso # (Auto) 0.01 (0.01-0.08) K/mm3 Manual Slide Review Abnormal smear PT 11.4 (9.7-12.0) SECONDS INR 1.05 Puncture Site ABG pH (7.35-7.45) ABG pCO2 (35.0-45.0) mmHg ABG pO2 (80.0-100.0) mmHg ABG HCO3 (22.0-26.0) meq/L ABG O2 Saturation (96.0-97.0) % ABG Base Excess (-2-2.0) Travis Test O2 Delivery Device FiO2 (21.00-100.00) % Sodium (136-145) mEq/L Potassium (3.5-5.1) mEq/L Chloride (98-107) mEq/L Carbon Dioxide (21-32) mEq/L Anion Gap (5-15) BUN (7-18) mg/dL Creatinine (0.7-1.3) mg/dL Est Cr Clr Drug Dosing mL/min Estimated GFR (MDRD) (>60) mL/min BUN/Creatinine Ratio (14-18) Glucose (74-106) mg/dL Calcium (8.5-10.1) mg/dL Phosphorus 1.5 L (2.6-4.7) mg/dL Magnesium (1.8-2.4) mg/dl Total Bilirubin (0.2-1.0) mg/dL GGT (15-85) U/L AST (15-37) U/L ALT (16-63) U/L Alkaline Phosphatase (46-116) U/L C-Reactive Protein (<1.0) mg/dL Total Protein (6.4-8.2) g/dl Albumin (3.4-5.0) g/dl Globulin gm/dL Albumin/Globulin Ratio (1-2) Urine Color (Yellow) Urine Appearance (Clear) Urine pH (5.0-8.0) Ur Specific [place] (1.005-1.030) Urine Protein (Negative) Urine Glucose (UA) (Negative) Urine Ketones (Negative) Urine Occult Blood (Negative) Urine Nitrite (Negative) Urine Bilirubin (Negative) Urine Urobilinogen (0.2-1.0) Ur Leukocyte Esterase (Negative) Urine RBC (0-5) /hpf Urine WBC (0-5) /hpf Ur Squamous Epith Cells (0-5) /hpf Urine Bacteria (FEW) /hpf Urine Mucus (FEW) /hpf Urine Opiates Screen (MLEBMB=765) Ur Buprenorphine Scrn (CUTOFF=10) Ur Oxycodone Screen (CET9MG=402) Urine Methadone Screen (CMS7VJ=143) Ur Propoxyphene Screen (LPASXS=446) Ur Barbiturates Screen (CRWGDG=043) Ur Tricyclics Screen (VKDGWN=920) Ur Phencyclidine Scrn (CUTOFF=25) Ur Amphetamine Screen (BNKICK=116) U Methamphetamines Scrn (XMFBPH=204) U Benzodiazepines Scrn (UFXFCE=047) U Cocaine Metab Screen (OPYGRE=360) U Marijuana (THC) Screen (CUTOFF=50) Ethyl Alcohol (0.00) gm% Blood Type Gel Antibody Screen 06/01/1408/06/19 08/06/19 Range/Units 19:00 19:44 19:44 WBC (4.23-9.07) K/mm3 RBC (4.63-6.08) M/mm3 Hgb (13.7-17.5) gm/dl Hct (40.1-51.0) % MCV (79.0-92.2) fl MCH (25.7-32.2) pg MCHC (32.2-35.5) g/dl RDW Std Deviation (35.1-43.9) fL Plt Count (163-337) K/mm3 MPV (9.4-12.3) fl Neut % (Auto) (34.0-67.9) % Lymph % (Auto) (21.8-53.1) % [place] % (Auto) (5.3-12.2) % Eos % (Auto) (0.8-7.0) Baso % (Auto) (0.1-1.2) % Neut # (Auto) (1.78-5.38) K/mm3 Lymph # (Auto) (1.32-3.57) K/mm3 [place] # (Auto) (0.30-0.82) K/mm3 Eos # (Auto) (0.04-0.54) K/mm3 Baso # (Auto) (0.01-0.08) K/mm3 Manual Slide Review PT (9.7-12.0) SECONDS INR Puncture Site ABG pH (7.35-7.45) ABG pCO2 (35.0-45.0) mmHg ABG pO2 (80.0-100.0) mmHg ABG HCO3 (22.0-26.0) meq/L ABG O2 Saturation (96.0-97.0) % ABG Base Excess (-2-2.0) Travis Test O2 Delivery Device FiO2 (21.00-100.00) % Sodium (136-145) mEq/L Potassium (3.5-5.1) mEq/L Chloride (98-107) mEq/L Carbon Dioxide (21-32) mEq/L Anion Gap (5-15) BUN (7-18) mg/dL Creatinine (0.7-1.3) mg/dL Est Cr Clr Drug Dosing mL/min Estimated GFR (MDRD) (>60) mL/min BUN/Creatinine Ratio (14-18) Glucose (74-106) mg/dL Calcium (8.5-10.1) mg/dL Phosphorus (2.6-4.7) mg/dL Magnesium (1.8-2.4) mg/dl Total Bilirubin (0.2-1.0) mg/dL GGT 112 H (15-85) U/L AST (15-37) U/L ALT (16-63) U/L Alkaline Phosphatase (46-116) U/L C-Reactive Protein (<1.0) mg/dL Total Protein (6.4-8.2) g/dl Albumin (3.4-5.0) g/dl Globulin gm/dL Albumin/Globulin Ratio (1-2) Urine Color Yellow (Yellow) Urine Appearance Clear (Clear) Urine pH 6.0 (5.0-8.0) Ur Specific [place] 1.015 (1.005-1.030) Urine Protein 2+ H (Negative) Urine Glucose (UA) Negative (Negative) Urine Ketones Trace H (Negative) Urine Occult Blood 2+ H (Negative) Urine Nitrite Negative (Negative) Urine Bilirubin Negative (Negative) Urine Urobilinogen 0.2 (0.2-1.0) Ur Leukocyte Esterase Negative (Negative) Urine RBC 5-10 H (0-5) /hpf Urine WBC 0-5 (0-5) /hpf Ur Squamous Epith Cells 0-5 (0-5) /hpf Urine Bacteria Few (FEW) /hpf Urine Mucus Few (FEW) /hpf Urine Opiates Screen Negative (BVEEVE=423) Ur Buprenorphine Scrn Negative (CUTOFF=10) Ur Oxycodone Screen Negative (RPT1DY=485) Urine Methadone Screen Negative (VKK6ES=122) Ur Propoxyphene Screen Negative (GQQCMY=687) Ur Barbiturates Screen Negative (OAAAJD=710) Ur Tricyclics Screen Negative (KHHQJI=652) Ur Phencyclidine Scrn Negative (CUTOFF=25) Ur Amphetamine Screen Negative (IOICYZ=307) U Methamphetamines Scrn Negative (LBFQAI=529) U Benzodiazepines Scrn Negative (HNEDMJ=053) U Cocaine Metab Screen Negative (VLVNXD=938) U Marijuana (THC) Screen Negative (CUTOFF=50) Ethyl Alcohol 0.00 (0.00) gm% Blood Type Gel Antibody Screen 08/06/19 08/06/19 08/07/19 Range/Units 20:21 22:38 03:25 WBC 5.95 5.73 (4.23-9.07) K/mm3 RBC 3.21 L 3.07 L (4.63-6.08) M/mm3 Hgb 9.9 L 9.4 L (13.7-17.5) gm/dl Hct 30.7 L 29.6 L (40.1-51.0) % MCV 95.6 H 96.4 H (79.0-92.2) fl MCH 30.8 30.6 (25.7-32.2) pg MCHC 32.2 31.8 L (32.2-35.5) g/dl RDW Std Deviation 53.7 H 54.0 H (35.1-43.9) fL Plt Count 83 L 83 L (163-337) K/mm3 MPV 9.9 9.4 (9.4-12.3) fl Neut % (Auto) 72.0 H 73.8 H (34.0-67.9) % Lymph % (Auto) 15.0 L 14.8 L (21.8-53.1) % [place] % (Auto) 11.3 9.6 (5.3-12.2) % Eos % (Auto) 1.0 1.2 (0.8-7.0) Baso % (Auto) 0.2 0.3 (0.1-1.2) % Neut # (Auto) 4.29 4.22 (1.78-5.38) K/mm3 Lymph # (Auto) 0.89 L 0.85 L (1.32-3.57) K/mm3 [place] # (Auto) 0.67 0.55 (0.30-0.82) K/mm3 Eos # (Auto) 0.06 0.07 (0.04-0.54) K/mm3 Baso # (Auto) 0.01 0.02 (0.01-0.08) K/mm3 Manual Slide Review Abnormal smear Abnormal smear PT (9.7-12.0) SECONDS INR Puncture Site Lt radial ABG pH 7.37 (7.35-7.45) ABG pCO2 34.6 L (35.0-45.0) mmHg ABG pO2 80.0 (80.0-100.0) mmHg ABG HCO3 19.7 L (22.0-26.0) meq/L ABG O2 Saturation 94.8 L (96.0-97.0) % ABG Base Excess -4.4 L (-2-2.0) Travis Test Positive O2 Delivery Device Room air FiO2 0.00 L (21.00-100.00) % Sodium (136-145) mEq/L Potassium (3.5-5.1) mEq/L Chloride (98-107) mEq/L Carbon Dioxide (21-32) mEq/L Anion Gap (5-15) BUN (7-18) mg/dL Creatinine (0.7-1.3) mg/dL Est Cr Clr Drug Dosing mL/min Estimated GFR (MDRD) (>60) mL/min BUN/Creatinine Ratio (14-18) Glucose (74-106) mg/dL Calcium (8.5-10.1) mg/dL Phosphorus (2.6-4.7) mg/dL Magnesium (1.8-2.4) mg/dl Total Bilirubin (0.2-1.0) mg/dL GGT (15-85) U/L AST (15-37) U/L ALT (16-63) U/L Alkaline Phosphatase (46-116) U/L C-Reactive Protein (<1.0) mg/dL Total Protein (6.4-8.2) g/dl Albumin (3.4-5.0) g/dl Globulin gm/dL Albumin/Globulin Ratio (1-2) Urine Color (Yellow) Urine Appearance (Clear) Urine pH (5.0-8.0) Ur Specific [place] (1.005-1.030) Urine Protein (Negative) Urine Glucose (UA) (Negative) Urine Ketones (Negative) Urine Occult Blood (Negative) Urine Nitrite (Negative) Urine Bilirubin (Negative) Urine Urobilinogen (0.2-1.0) Ur Leukocyte Esterase (Negative) Urine RBC (0-5) /hpf Urine WBC (0-5) /hpf Ur Squamous Epith Cells (0-5) /hpf Urine Bacteria (FEW) /hpf Urine Mucus (FEW) /hpf Urine Opiates Screen (PWYRKK=965) Ur Buprenorphine Scrn (CUTOFF=10) Ur Oxycodone Screen (LPW3SH=180) Urine Methadone Screen (USB7WC=525) Ur Propoxyphene Screen (GSVVOU=033) Ur Barbiturates Screen (QUKLBT=566) Ur Tricyclics Screen (MSFYUD=130) Ur Phencyclidine Scrn (CUTOFF=25) Ur Amphetamine Screen (ZZUUFZ=557) U Methamphetamines Scrn (EAXHGU=906) U Benzodiazepines Scrn (QNPBFI=993) U Cocaine Metab Screen (OZAIDQ=175) U Marijuana (THC) Screen (CUTOFF=50) Ethyl Alcohol (0.00) gm% Blood Type Gel Antibody Screen 08/07/19 08/07/19 08/07/19 Range/Units 03:29 03:29 06:30 WBC 5.46 (4.23-9.07) K/mm3 RBC 2.81 L (4.63-6.08) M/mm3 Hgb 8.7 L (13.7-17.5) gm/dl Hct 27.3 L (40.1-51.0) % MCV 97.2 H (79.0-92.2) fl MCH 31.0 (25.7-32.2) pg MCHC 31.9 L (32.2-35.5) g/dl RDW Std Deviation 53.9 H (35.1-43.9) fL Plt Count 68 L (163-337) K/mm3 MPV 9.3 L (9.4-12.3) fl Neut % (Auto) 73.2 H (34.0-67.9) % Lymph % (Auto) 14.3 L (21.8-53.1) % [place] % (Auto) 10.3 (5.3-12.2) % Eos % (Auto) 1.5 (0.8-7.0) Baso % (Auto) 0.2 (0.1-1.2) % Neut # (Auto) 4.00 (1.78-5.38) K/mm3 Lymph # (Auto) 0.78 L (1.32-3.57) K/mm3 [place] # (Auto) 0.56 (0.30-0.82) K/mm3 Eos # (Auto) 0.08 (0.04-0.54) K/mm3 Baso # (Auto) 0.01 (0.01-0.08) K/mm3 Manual Slide Review Abnormal smear PT (9.7-12.0) SECONDS INR Puncture Site ABG pH (7.35-7.45) ABG pCO2 (35.0-45.0) mmHg ABG pO2 (80.0-100.0) mmHg ABG HCO3 (22.0-26.0) meq/L ABG O2 Saturation (96.0-97.0) % ABG Base Excess (-2-2.0) Travis Test O2 Delivery Device FiO2 (21.00-100.00) % Sodium 131 L (136-145) mEq/L Potassium 3.3 L (3.5-5.1) mEq/L Chloride 97 L (98-107) mEq/L Carbon Dioxide 20 L (21-32) mEq/L Anion Gap 17.3 H (5-15) BUN 33 H (7-18) mg/dL Creatinine 1.7 H (0.7-1.3) mg/dL Est Cr Clr Drug Dosing 51.06 mL/min Estimated GFR (MDRD) 42 (>60) mL/min BUN/Creatinine Ratio 19.4 H (14-18) Glucose 110 H (74-106) mg/dL Calcium 8.4 L (8.5-10.1) mg/dL Phosphorus 1.3 L (2.6-4.7) mg/dL Magnesium 2.6 H (1.8-2.4) mg/dl Total Bilirubin (0.2-1.0) mg/dL GGT (15-85) U/L AST (15-37) U/L ALT (16-63) U/L Alkaline Phosphatase (46-116) U/L C-Reactive Protein (<1.0) mg/dL Total Protein (6.4-8.2) g/dl Albumin (3.4-5.0) g/dl Globulin gm/dL Albumin/Globulin Ratio (1-2) Urine Color (Yellow) Urine Appearance (Clear) Urine pH (5.0-8.0) Ur Specific [place] (1.005-1.030) Urine Protein (Negative) Urine Glucose (UA) (Negative) Urine Ketones (Negative) Urine Occult Blood (Negative) Urine Nitrite (Negative) Urine Bilirubin (Negative) Urine Urobilinogen (0.2-1.0) Ur Leukocyte Esterase (Negative) Urine RBC (0-5) /hpf Urine WBC (0-5) /hpf Ur Squamous Epith Cells (0-5) /hpf Urine Bacteria (FEW) /hpf Urine Mucus (FEW) /hpf Urine Opiates Screen (YMOZMY=837) Ur Buprenorphine Scrn (CUTOFF=10) Ur Oxycodone Screen (CAR0ZB=379) Urine Methadone Screen (EVA3PQ=120) Ur Propoxyphene Screen (TGMUYG=052) Ur Barbiturates Screen (OTOVDH=471) Ur Tricyclics Screen (HTBIFF=337) Ur Phencyclidine Scrn (CUTOFF=25) Ur Amphetamine Screen (KXCEII=446) U Methamphetamines Scrn (EZVKBP=626) U Benzodiazepines Scrn (CCAJBK=792) U Cocaine Metab Screen (AKCCIT=702) U Marijuana (THC) Screen (CUTOFF=50) Ethyl Alcohol (0.00) gm% Blood Type Gel Antibody Screen 08/07/19 08/07/19 Range/Units 10:29 10:29 WBC 5.52 (4.23-9.07) K/mm3 RBC 2.80 L (4.63-6.08) M/mm3 Hgb 8.7 L (13.7-17.5) gm/dl Hct 27.2 L (40.1-51.0) % MCV 97.1 H (79.0-92.2) fl MCH 31.1 (25.7-32.2) pg MCHC 32.0 L (32.2-35.5) g/dl RDW Std Deviation 54.6 H (35.1-43.9) fL Plt Count 67 L (163-337) K/mm3 MPV 8.9 L (9.4-12.3) fl Neut % (Auto) 72.4 H (34.0-67.9) % Lymph % (Auto) 15.0 L (21.8-53.1) % [place] % (Auto) 10.9 (5.3-12.2) % Eos % (Auto) 1.1 (0.8-7.0) Baso % (Auto) 0.2 (0.1-1.2) % Neut # (Auto) 4.00 (1.78-5.38) K/mm3 Lymph # (Auto) 0.83 L (1.32-3.57) K/mm3 [place] # (Auto) 0.60 (0.30-0.82) K/mm3 Eos # (Auto) 0.06 (0.04-0.54) K/mm3 Baso # (Auto) 0.01 (0.01-0.08) K/mm3 Manual Slide Review Abnormal smear PT (9.7-12.0) SECONDS INR Puncture Site ABG pH (7.35-7.45) ABG pCO2 (35.0-45.0) mmHg ABG pO2 (80.0-100.0) mmHg ABG HCO3 (22.0-26.0) meq/L ABG O2 Saturation (96.0-97.0) % ABG Base Excess (-2-2.0) Travis Test O2 Delivery Device FiO2 (21.00-100.00) % Sodium 130 L (136-145) mEq/L Potassium 3.2 L (3.5-5.1) mEq/L Chloride 99 (98-107) mEq/L Carbon Dioxide 20 L (21-32) mEq/L Anion Gap 14.2 (5-15) BUN 28 H (7-18) mg/dL Creatinine 1.6 H (0.7-1.3) mg/dL Est Cr Clr Drug Dosing 54.25 mL/min Estimated GFR (MDRD) 45 (>60) mL/min BUN/Creatinine Ratio 17.5 (14-18) Glucose 106 (74-106) mg/dL Calcium 8.0 L (8.5-10.1) mg/dL Phosphorus (2.6-4.7) mg/dL Magnesium (1.8-2.4) mg/dl Total Bilirubin (0.2-1.0) mg/dL GGT (15-85) U/L AST (15-37) U/L ALT (16-63) U/L Alkaline Phosphatase (46-116) U/L C-Reactive Protein (<1.0) mg/dL Total Protein (6.4-8.2) g/dl Albumin (3.4-5.0) g/dl Globulin gm/dL Albumin/Globulin Ratio (1-2) Urine Color (Yellow) Urine Appearance (Clear) Urine pH (5.0-8.0) Ur Specific [place] (1.005-1.030) Urine Protein (Negative) Urine Glucose (UA) (Negative) Urine Ketones (Negative) Urine Occult Blood (Negative) Urine Nitrite (Negative) Urine Bilirubin (Negative) Urine Urobilinogen (0.2-1.0) Ur Leukocyte Esterase (Negative) Urine RBC (0-5) /hpf Urine WBC (0-5) /hpf Ur Squamous Epith Cells (0-5) /hpf Urine Bacteria (FEW) /hpf Urine Mucus (FEW) /hpf Urine Opiates Screen (OJBZMG=434) Ur Buprenorphine Scrn (CUTOFF=10) Ur Oxycodone Screen (DUW0CC=070) Urine Methadone Screen (JHJ2MJ=866) Ur Propoxyphene Screen (SONBXK=740) Ur Barbiturates Screen (XXPUXS=781) Ur Tricyclics Screen (YOPCEQ=155) Ur Phencyclidine Scrn (CUTOFF=25) Ur Amphetamine Screen (HZDTPL=338) U Methamphetamines Scrn (BMBAOF=752) U Benzodiazepines Scrn (GLRHJR=272) U Cocaine Metab Screen (ABNTYM=478) U Marijuana (THC) Screen (CUTOFF=50) Ethyl Alcohol (0.00) gm% Blood Type Gel Antibody Screen Result Diagrams: 08/07/19 10:29 08/07/19 10:29 Sepsis Event Note - Evaluation Sepsis Screening Result: No Definite Risk - Focused Exam Vital Signs: Vital Signs Temp Pulse Resp BP BP Pulse Ox 08/07/19 08:08 111/82 08/07/19 08:07 95 08/07/19 08:06 97 08/07/19 08:00 74 16 111/82 98 08/07/19 04:08 127/90 08/07/19 04:04 55/11 L 08/07/19 04:00 36.9 C 18 127/90 99 08/07/19 00:22 90/70 Date Exam was Performed: 08/07/19 Time Exam was Performed: 12:08 *Q Meaningful Use (ADM) - VTE Risk Assess *Q Each Risk Factor Represents 1 Point: Age 41 - 59 years Total Score 1 Point Risk Factors: 1 Consult PN Assessment/Plan Procedures: Procedures AIRWAY INHALATION TREATMENT (03/16/18) ASSAY OF LACTIC ACID (03/16/18) ASSAY OF NATRIURETIC PEPTIDE (03/16/18) ASSAY OF TROPONIN QUANT (03/16/18) BLOOD CULTURE FOR BACTERIA (03/16/18) COMPLETE CBC W/AUTO DIFF WBC (03/16/18) COMPREHEN METABOLIC PANEL (03/16/18) CT ABD & PELVIS W/O CONTRAST (03/16/18) ECHO EXAM OF ABDOMEN (03/16/18) ELECTROCARDIOGRAM TRACING (03/16/18) EMERGENCY DEPT VISIT (03/16/18) EMERGENCY DEPT VISIT (01/13/18) INFLUENZA ASSAY W/OPTIC (03/16/18) METABOLIC PANEL TOTAL CA (03/16/18) ROUTINE VENIPUNCTURE (03/16/18) THER/PROPH/DIAG INJ IV PUSH (02/26/18) THER/PROPH/DIAG IV INF ADDON (03/16/18) THER/PROPH/DIAG IV INF INIT (03/16/18) TTE W/DOPPLER COMPLETE (03/16/18) TX/PRO/DX INJ NEW DRUG ADDON (03/16/18) TX/PRO/DX INJ SAME DRUG MUTUEL CLERK (03/16/18) URINALYSIS AUTO W/SCOPE (03/16/18) X-RAY EXAM CHEST 1 VIEW (03/16/18) Problem List Initiated/Reviewed/Updated: Yes My Orders Last 24 Hours: My Active Orders 08/07/19 09:00 Remove Patch 1 ea TRDERM DAILY 08/07/19 11:21 Schedule Procedure [COMM] Routine 08/07/19 12:07 Schedule Procedure [COMM] Routine Plan: Melena and symptomatic anemia in chronic alcoholic patient with probable undiagnosed liver disease. Suspect esophageal varices versus peptic ulcer disease. Hgb has been stable for past several hours. Plan for diagnostic upper endoscopy, possibly colonoscopy if upper study is non- diagnostic. Further management will depend on findings. Requesting Provider: Toro Date Consult Requested: 08/06/19 Reason for Consult: GI bleed Patient History Reviewed: Yes Admission H&P Reviewed: Yes Notified Requestor: Yes
[2019-08-07] MEDS: Nicotine 21 MG/24 Hr Patch TRDERM SCH (12:41)
[2019-08-07] MEDS ORDERED: Propofol 200 MG/20 ML SDV ONE ×2 (12:57→14:08)
[2019-08-07] MEDS ORDERED: Ketamine 500 mg/10 ML MDV ONE (12:57)
[2019-08-07] MEDS ORDERED: fentaNYL 100 MCG/2 ML SDV ONE (12:57)
[2019-08-07] MEDS ORDERED: Lidocaine 1% 4 ML ONE (13:07)
--- NOTE | 2019-08-07 14:54 | PCM48HPAN ---
Post Anesthesia Note - EVALUATION WITHIN 48HRS OF ANESTHETIC Vital Signs in Normal Range: Yes Patient Participated in Evaluation: Yes Respiratory Function Stable: Yes Airway Patent: Yes Cardiovascular Function Stable: Yes Hydration Status Stable: Yes Pain Control Satisfactory: Yes Nausea and Vomiting Control Satisfactory: Yes Mental Status Recovered: Yes Vital Signs: Last Vital Signs Temp 36.9 C 08/07/19 04:00 Pulse 74 08/07/19 08:00 Resp 16 08/07/19 08:00 BP 111/82 08/07/19 08:08 Pulse Ox 95 08/07/19 08:07 Orthostatic Blood Pressure [ 84/70 Standing] Orthostatic Blood Pressure [ 118/77 Supine]
--- NOTE | 2019-08-07 15:02 | PCM.PRNOTE ---
- Free Text/Narrative Note: Date: 08/07/2019 Procedure: diagnostic esophagogastroduodenoscopy and colonoscopy Indication: melena, symptomatic anemia Endoscopist: Jackson Reid MD Findings: Mild cobblestoning of duodenal mucosa. Abnormal raised, erythematous mucosa of the fundus. No peptic ulcer or varices or esophagitis. There appeared to be chronic severe inflammatory change of the perianal region. Digital rectal exam was significant for indurated, friable tissue within the anal canal. Throughout the colon, there appeared to be aphthous ulcers. Ulcerative skip lesions were noted. The ileocecal junction appeared to have some polypoid changes. Biopsies were taken throughout both procedures. Detailed Report: The patient was taken to the endoscopy suite and placed in left lateral decubitus position. Time out was performed and monitored anesthesia care was initiated. A bite block was placed and the endoscope was inserted through the mouth and advanced to the duodenum with ease. The duodenal mucosa had an abnormal cobblestone appearance, without any bleeding or ulcerative change noted. The pylorus appeared relatively normal. No ulcers were noted within the antrum, body, or fundus, and the incisura appeared normal. The fundic mucosa appeared grossly abnormal with a raised, hypervascular appearance, though this did not appear inflamed or friable. The Z line appeared normal, with no evidence of varices or esophagitis. Next colonoscopy was performed. The perianal area appeared the have chronic inflammatory changes, with indurated and excoriated tissue. No obvious fistula was noted. Digital rectal exam was remarkable for friable, indurated tissue. No discrete mass was appreciated. The colonoscope was inserted and advanced to the cecum. Prep was fair. The ileocecal junction was visualized; the mucosa had a hyperemic, polypoid appearance to it which was biopsied. A small polyp in the cecum was biopsied with forceps. The scope was carefully withdrawn and mucosal surfaces inspected. There were scattered lesions that looked like aphthous ulcers. There was more significant, broader and deeper ulceration in the transverse colon. Biopsies of grossly abnormal mucosa were obtained. No additional polypoid lesions were identified. No diverticular disease appreciated. No tumor appreciated on retroflexion of the scope within the rectum. Air was evacuated and the scope withdrawn completely. The patient tolerated the procedure well. Jackson Reid MD General Surgery
[2019-08-08] MEDS: Sodium Chloride 0.9% 1,000 ML IV SCH ×2 (00:06→04:32)
[2019-08-08] MEDS: Pantoprazole 40 MG Vial IV SCH (08:16)
[2019-08-08] MEDS: Nicotine 21 MG/24 Hr Patch TRDERM SCH (08:17)
[2019-08-08] MEDS ORDERED: Magnesium Sulfate/Water 2 GM in Premix Bag 1 BAG IV ONE (08:50)
--- NOTE | 2019-08-08 08:58 | PCM.PN ---
- General Info Date of Service: 08/08/19 Subjective Update: Slept OK Tolerating diet No complaints - Patient Data Vitals - Most Recent: Last Vital Signs Temp 98.4 F 08/08/19 07:16 Pulse 84 08/08/19 07:16 Resp 20 08/08/19 07:16 BP 142/76 H 08/08/19 07:16 Pulse Ox 95 08/08/19 07:16 Weight - Most Recent: 105.823 kg - Exam General: Alert, Oriented, Cooperative, No Acute Distress HEENT: Mucous Membr. Moist/[place] Neck: Supple, Trachea Midline Lungs: Clear to Auscultation, Normal Respiratory Effort. No: Crackles, Rales, Rhonchi, Rub, Stridor, Wheezing Cardiovascular: Regular Rate, Regular Rhythm. No: Murmurs, Gallops, Rubs GI/Abdominal Exam: Normal Bowel Sounds, Soft, Non-Tender, Distended. No: Guarding, Rigid, Rebound Physical Findings Comments:: SKIN: - Severely dry throughout with multiple scaling areas - Previous fistulization scars on left axilla - Right groin with yellowish plaque and epidermal breakdown - Multiple stigmas of scarring - Lesions on BL arms appear like actinic keratosis OVERALL APPEARANCE: - Disheveled and unkept Sepsis Event Note - Evaluation Sepsis Screening Result: No Definite Risk - Problem List & Annotations (1) Upper GI bleed SNOMED Code(s): 57436160 Code(s): K92.2 - GASTROINTESTINAL HEMORRHAGE, UNSPECIFIED Status: Acute Current Visit: Yes (2) Dry skin dermatitis SNOMED Code(s): 463497408 Code(s): L85.3 - XEROSIS CUTIS Status: Acute Current Visit: Yes (3) Alcohol abuse SNOMED Code(s): 40017187 Code(s): F10.10 - ALCOHOL ABUSE, UNCOMPLICATED Status: Acute Current Visit: Yes (4) Smoker SNOMED Code(s): 31516602 Code(s): F17.200 - NICOTINE DEPENDENCE, UNSPECIFIED, UNCOMPLICATED Status: Acute Current Visit: Yes (5) Hypertension SNOMED Code(s): 46561510 Code(s): I10 - ESSENTIAL (PRIMARY) HYPERTENSION Status: Acute Current Visit: No Qualifiers: Hypertension type: essential hypertension Qualified Code(s): I10 - Essential (primary) hypertension (6) Hyponatremia SNOMED Code(s): 79454438 Code(s): E87.1 - HYPO-OSMOLALITY AND HYPONATREMIA Status: Acute Current Visit: Yes (7) Hypokalemia SNOMED Code(s): 36911968 Code(s): E87.6 - HYPOKALEMIA Status: Acute Current Visit: Yes (8) Hypophosphatemia SNOMED Code(s): 6119319 Code(s): E83.39 - OTHER DISORDERS OF PHOSPHORUS METABOLISM Status: Acute Current Visit: Yes (9) Hypomagnesemia SNOMED Code(s): 301515606 Code(s): E83.42 - HYPOMAGNESEMIA Status: Acute Current Visit: Yes (10) Acute kidney injury SNOMED Code(s): 99722437, 49534699 Code(s): N17.9 - ACUTE KIDNEY FAILURE, UNSPECIFIED Status: Acute Current Visit: Yes (11) Thrombocytopenia SNOMED Code(s): 295514555 Code(s): D69.6 - THROMBOCYTOPENIA, UNSPECIFIED Status: Acute Current Visit: Yes (12) Axillary hidradenitis suppurativa SNOMED Code(s): 431497961 Code(s): L73.2 - HIDRADENITIS SUPPURATIVA Status: Acute Current Visit: Yes (13) Poor personal hygiene SNOMED Code(s): 553992784 Code(s): R46.0 - VERY LOW LEVEL OF PERSONAL HYGIENE Status: Acute Current Visit: Yes (14) Orthostatic hypotension SNOMED Code(s): 49783756 Code(s): I95.1 - ORTHOSTATIC HYPOTENSION Status: Acute Current Visit: Yes (15) Inflammatory bowel disease SNOMED Code(s): 91018673 Code(s): K52.9 - NONINFECTIVE GASTROENTERITIS AND COLITIS, UNSPECIFIED Status: Acute Current Visit: Yes - Problem List Review Problem List Initiated/Reviewed/Updated: Yes - Assessment Assessment:: ASSESSMENT 08/06/2019 - Multiple melena episodes prior to admission - Daily drinker and smoker up to 2 weeks ago, currently not drinking and smoking only 1 cigarette a day - Hb on admission 9.9 with thrombocytopenia - Na 132, K 2.7, Cl 96, CO2 19, Mg 0.8, PO4 1.5 and GFR 37 - Patient appears very disheveled - States he moved in to a trailer about 5 days ago - Has not taken a shower in over a week as per patient, appears to be longer - Equivocal heart failure history, patient states " I used to have it but not anymore" 08/07/2019 - Hb down from 9.8 to 8.2 - Platelets down from 83 to 68 - Electrolytes continue to be abnormal - GFR mildly improved - Abdominal US normal except for borderline splenomegaly - Endoscopic procedures today - Gastroduodenoscopy: - Mild cobblestoning of duodenal mucosa. - Abnormal raised, erythematous mucosa of the fundus. - No peptic ulcer or varices or esophagitis. - Colonoscopy (fair prep) - The perianal area appeared the have chronic inflammatory changes, with indurated and excoriated tissue. - No obvious fistula was noted. Digital rectal exam was remarkable for friable, indurated tissue. - No discrete mass was appreciated. - The ileocecal junction was visualized; the mucosa had a hyperemic, polypoid appearance to it which was biopsied. - A small polyp in the cecum was biopsied with forceps. - There were scattered lesions that looked like aphthous ulcers. - There was more significant, broader and deeper ulceration in the transverse colon. - Biopsies of grossly abnormal mucosa were obtained. - No additional polypoid lesions were identified. - No diverticular disease appreciated. - No tumor appreciated on retroflexion of the scope within the rectum. - No further melena episodes 08/08/2019 - BP trend 55-132/70-90 - HR trend 75-104x' - Na up from 133 to 135 - PO$ still 1.3 - Mg down from 2.6 to 1.7 - Hb stable at 8.2 - Plan Plan:: Inflammatory bowel disease, likely UC Upper GI bleed Alcohol abuse Orthostatic hypotension Thrombocytopenia - Transition pantoprazole to PO - Needs GI follow up - Follow up on biopsy results Acute kidney injury Hyponatremia Hypokalemia Hypomagnesemia Hypophosphatemia - Replace electrolytes - Monitor urine output - Renally dosed medications - Repeat labs as needed Hypertension - Continue to hold home medications Dry skin dermatitis - Records pending Smoker - Nicotine patch Poor personal hygiene Hypoalbuminemia - surgical services coordinator consult - Dietary consult Orthostatic hypotension, resolved PROPHYLAXIS DVT- Pharmacologic contraindicated, compression stockings GI- Pantoprazole IV BID CODE STATUS: FULL CODE DISPOSITION: Patient will remain admitted medical floor pending repletion of electrolytes and monitorization of labs. He will need to follow up with GI specialist with biopsy results.
[2019-08-08] MEDS: Sodium Phosphate 30 MMOLE in Sodium Chloride 0.9% 250 ML IV SCH ×2 (10:44→13:56)
[2019-08-08] MEDS: Pantoprazole 40 MG Tab.CR PO SCH (17:03)
[2019-08-09] MEDS: Pantoprazole 40 MG Tab.CR PO SCH ×2 (05:58→16:10)
[2019-08-09] MEDS: Nicotine 21 MG/24 Hr Patch TRDERM SCH (08:30)
[2019-08-09 08:44] LABS: VITAMIN D,25-HYDROXY < 5 ng/ml (30.0-100.0)
--- NOTE | 2019-08-09 09:55 | PCM.PN ---
- General Info Date of Service: 08/09/19 Subjective Update: Slept Ok Tolerating diet Ambulating No complaints - Patient Data Vitals - Most Recent: Last Vital Signs Temp 98.4 F 08/09/19 08:27 Pulse 77 08/09/19 08:27 Resp 18 08/09/19 08:27 BP 106/68 08/09/19 08:27 Pulse Ox 93 L 08/09/19 08:27 Weight - Most Recent: 109.225 kg - Exam General: Alert, Oriented, Cooperative, No Acute Distress HEENT: EOMI, Mucous Membr. Moist/[place] Neck: Supple, Trachea Midline Lungs: Clear to Auscultation, Normal Respiratory Effort. No: Crackles, Rales, Rhonchi, Rub, Stridor, Wheezing Cardiovascular: Regular Rate, Regular Rhythm. No: Murmurs, Gallops, Rubs GI/Abdominal Exam: Normal Bowel Sounds, Distended. No: Guarding, Rigid, Rebound , Tender Physical Findings Comments:: SKIN: - Severely dry throughout with multiple scaling areas - Previous fistulization scars on left axilla - Right groin with yellowish plaque and epidermal breakdown - Multiple stigmas of scarring - Lesions on BL arms appear like actinic keratosis OVERALL APPEARANCE: - Disheveled and unkept Sepsis Event Note - Evaluation Sepsis Screening Result: No Definite Risk - Problem List & Annotations (1) Upper GI bleed SNOMED Code(s): 09087997 Code(s): K92.2 - GASTROINTESTINAL HEMORRHAGE, UNSPECIFIED Status: Acute Current Visit: Yes (2) Dry skin dermatitis SNOMED Code(s): 573849931 Code(s): L85.3 - XEROSIS CUTIS Status: Acute Current Visit: Yes (3) Alcohol abuse SNOMED Code(s): 54073537 Code(s): F10.10 - ALCOHOL ABUSE, UNCOMPLICATED Status: Acute Current Visit: Yes (4) Smoker SNOMED Code(s): 72434721 Code(s): F17.200 - NICOTINE DEPENDENCE, UNSPECIFIED, UNCOMPLICATED Status: Acute Current Visit: Yes (5) Hypertension SNOMED Code(s): 00591796 Code(s): I10 - ESSENTIAL (PRIMARY) HYPERTENSION Status: Acute Current Visit: No Qualifiers: Hypertension type: essential hypertension Qualified Code(s): I10 - Essential (primary) hypertension (6) Hyponatremia SNOMED Code(s): 64899337 Code(s): E87.1 - HYPO-OSMOLALITY AND HYPONATREMIA Status: Acute Current Visit: Yes (7) Hypokalemia SNOMED Code(s): 68449696 Code(s): E87.6 - HYPOKALEMIA Status: Acute Current Visit: Yes (8) Hypophosphatemia SNOMED Code(s): 4423421 Code(s): E83.39 - OTHER DISORDERS OF PHOSPHORUS METABOLISM Status: Acute Current Visit: Yes (9) Hypomagnesemia SNOMED Code(s): 443399734 Code(s): E83.42 - HYPOMAGNESEMIA Status: Acute Current Visit: Yes (10) Acute kidney injury SNOMED Code(s): 66528795, 08744683 Code(s): N17.9 - ACUTE KIDNEY FAILURE, UNSPECIFIED Status: Acute Current Visit: Yes (11) Thrombocytopenia SNOMED Code(s): 385181086 Code(s): D69.6 - THROMBOCYTOPENIA, UNSPECIFIED Status: Acute Current Visit: Yes (12) Axillary hidradenitis suppurativa SNOMED Code(s): 735343102 Code(s): L73.2 - HIDRADENITIS SUPPURATIVA Status: Acute Current Visit: Yes (13) Poor personal hygiene SNOMED Code(s): 418342724 Code(s): R46.0 - VERY LOW LEVEL OF PERSONAL HYGIENE Status: Acute Current Visit: Yes (14) Orthostatic hypotension SNOMED Code(s): 95505944 Code(s): I95.1 - ORTHOSTATIC HYPOTENSION Status: Acute Current Visit: Yes (15) Inflammatory bowel disease SNOMED Code(s): 75695578 Code(s): K52.9 - NONINFECTIVE GASTROENTERITIS AND COLITIS, UNSPECIFIED Status: Acute Current Visit: Yes - Problem List Review Problem List Initiated/Reviewed/Updated: Yes - Assessment Assessment:: ASSESSMENT 08/06/2019 - Multiple melena episodes prior to admission - Daily drinker and smoker up to 2 weeks ago, currently not drinking and smoking only 1 cigarette a day - Hb on admission 9.9 with thrombocytopenia - Na 132, K 2.7, Cl 96, CO2 19, Mg 0.8, PO4 1.5 and GFR 37 - Patient appears very disheveled - States he moved in to a trailer about 5 days ago - Has not taken a shower in over a week as per patient, appears to be longer - Equivocal heart failure history, patient states " I used to have it but not anymore" 08/07/2019 - Hb down from 9.8 to 8.2 - Platelets down from 83 to 68 - Electrolytes continue to be abnormal - GFR mildly improved - Abdominal US normal except for borderline splenomegaly - Endoscopic procedures today - Gastroduodenoscopy: - Mild cobblestoning of duodenal mucosa. - Abnormal raised, erythematous mucosa of the fundus. - No peptic ulcer or varices or esophagitis. - Colonoscopy (fair prep) - The perianal area appeared the have chronic inflammatory changes, with indurated and excoriated tissue. - No obvious fistula was noted. Digital rectal exam was remarkable for friable, indurated tissue. - No discrete mass was appreciated. - The ileocecal junction was visualized; the mucosa had a hyperemic, polypoid appearance to it which was biopsied. - A small polyp in the cecum was biopsied with forceps. - There were scattered lesions that looked like aphthous ulcers. - There was more significant, broader and deeper ulceration in the transverse colon. - Biopsies of grossly abnormal mucosa were obtained. - No additional polypoid lesions were identified. - No diverticular disease appreciated. - No tumor appreciated on retroflexion of the scope within the rectum. - No further melena episodes 08/08/2019 - BP trend 55-132/70-90 - HR trend 75-104x' - Na up from 133 to 135 - PO4 still 1.3 - Mg down from 2.6 to 1.7 - Hb stable at 8.2 - Workup for IBD ordered: ASCA, FRANKI, anti gliadin and vitamin levels - No more diarrhea 08/09/2019 - Lab results - Vitamin D severely low - Hyponatremia corrected - K 3.6 to 3.1 - Mag down from 1.7 to 1.4 - Iron low at 12 - VS trends - BP: 108-142/68-98 - Tmax 99 - Patient feels well - Plan Plan:: Inflammatory bowel disease, likely UC Upper GI bleed Alcohol abuse Orthostatic hypotension Thrombocytopenia Severe Vitamin D deficiency Severe iron deficiency - Continue Pantoprazole - Start vitamin D and iron replacement - Needs GI follow up - Follow up on biopsy results - Follow up on rest of labs Acute kidney injury Hypokalemia Hypomagnesemia - Replace electrolytes - Monitor urine output - Renally dosed medications - Repeat labs as needed Hypertension - Continue to hold home medications Dry skin dermatitis - Records pending Smoker - Nicotine patch Poor personal hygiene Hypoalbuminemia - manager managed backup services consult - Dietary consult Orthostatic hypotension, resolved Hyponatremia, resolved Hypophosphatemia, resolved PROPHYLAXIS DVT- Pharmacologic contraindicated, compression stockings GI- Pantoprazole IV BID CODE STATUS: FULL CODE DISPOSITION: Patient will remain admitted medical floor pending repletion of electrolytes and monitorization of labs. He will need to follow up with GI specialist with biopsy results.
[2019-08-09] MEDS ORDERED: Furosemide 40 MG/4 ML VIAL IVPUSH ONE (11:53)
[2019-08-09] MEDS ORDERED: Magnesium Sulfate/Water 4 GM in Premix Bag 1 BAG IV ONE (11:53)
[2019-08-09] MEDS ORDERED: Furosemide 40 MG Tab PO SCH ×2 (12:00→21:00)
[2019-08-09] MEDS: Potassium Chloride 10 MEQ in Premix Bag 1 BAG IV SCH ×6 (12:27→20:01)
[2019-08-09] MEDS: Losartan 25 MG Tab PO SCH (12:37)
[2019-08-09] MEDS: Furosemide 40 MG Tab PO SCH (20:06)
[2019-08-10] MEDS: Furosemide 40 MG Tab PO SCH (05:50)
[2019-08-10] MEDS: Pantoprazole 40 MG Tab.CR PO SCH ×2 (05:50→18:46)
[2019-08-10] MEDS: Losartan 25 MG Tab PO SCH (08:15)
[2019-08-10] MEDS: Nicotine 21 MG/24 Hr Patch TRDERM SCH (08:18)
--- NOTE | 2019-08-10 10:48 | PCM.PN ---
- General Info Date of Service: 08/10/19 Admission Dx/Problem (Free Text): Admission Diagnosis/Problem Admission Diagnosis/Problem Melena Subjective Update: Last BM today Refusing shower Reports he cannot afford to see specialists in [place] No concerns or complaints No diarrhea but several bowel movements today Functional Status: Reports: Pain Controlled, Tolerating Diet, Ambulating, Urinating. Denies: New Symptoms - Review of Systems General: Reports: No Symptoms. Denies: Fever, Weakness, Fatigue, Malaise, Chills HEENT: Reports: No Symptoms. Denies: Headaches, Sore Throat Pulmonary: Reports: No Symptoms. Denies: Shortness of Breath, Pleuritic Chest Pain, Cough, Sputum, Wheezing Cardiovascular: Reports: No Symptoms. Denies: Chest Pain, Palpitations Gastrointestinal: Reports: No Symptoms. Denies: Abdominal Pain, Constipation, Diarrhea, Hematochezia, Melena, Nausea, Vomiting Genitourinary: Reports: No Symptoms. Denies: Pain Musculoskeletal: Reports: No Symptoms Skin: Reports: No Symptoms. Denies: Cyanosis Neurological: Reports: No Symptoms. Denies: Confusion, Difficulty Walking, Gait Disturbance Psychiatric: Reports: No Symptoms - Patient Data Vitals - Most Recent: Last Vital Signs Temp 98.1 F 08/10/19 08:17 Pulse 69 08/10/19 08:17 Resp 14 08/10/19 08:17 BP 125/76 08/10/19 08:17 Pulse Ox 92 L 08/10/19 08:17 Orthostatic Blood Pressure [ 84/70 Standing] Orthostatic Blood Pressure [ 118/77 Supine] Weight - Most Recent: 235 lb 3.2 oz I&O - Last 24 Hours: Intake & Output 08/09/19 08/10/19 08/10/19 22:59 06:59 14:59 Intake Total 2260 2100 Output Total 100 900 Balance 2160 1200 Lab Results Last 24 Hours: Laboratory Results - last 24 hr 08/10/19 08/10/19 Range/Units 09:02 09:02 WBC 6.72 (4.23-9.07) K/mm3 RBC 2.52 L (4.63-6.08) M/mm3 Hgb 7.6 L (13.7-17.5) gm/dl Hct 25.8 L (40.1-51.0) % MCV 102.4 H (79.0-92.2) fl MCH 30.2 (25.7-32.2) pg MCHC 29.5 L (32.2-35.5) g/dl RDW Std Deviation 59.9 H (35.1-43.9) fL Plt Count 113 L (163-337) K/mm3 MPV 10.1 (9.4-12.3) fl Neut % (Auto) 78.1 H (34.0-67.9) % Lymph % (Auto) 13.7 L (21.8-53.1) % [place] % (Auto) 7.1 (5.3-12.2) % Eos % (Auto) 0.7 L (0.8-7.0) Baso % (Auto) 0.1 (0.1-1.2) % Neut # (Auto) 5.24 (1.78-5.38) K/mm3 Lymph # (Auto) 0.92 L (1.32-3.57) K/mm3 [place] # (Auto) 0.48 (0.30-0.82) K/mm3 Eos # (Auto) 0.05 (0.04-0.54) K/mm3 Baso # (Auto) 0.01 (0.01-0.08) K/mm3 Manual Slide Review Estimated GFR (MDRD) 45 (>60) mL/min Med Orders - Current: Current Medications Cholecalciferol (Vitamin D3) 5,000 unit PO DAILY [facility] Furosemide (Lasix) 40 mg PO DAILY@0600 [facility] Last Admin: 08/10/19 05:50 Dose: 40 mg Losartan Potassium (Cozaar) 50 mg PO DAILY [facility] Last Admin: 08/10/19 08:15 Dose: 50 mg Miscellaneous Information (Remove Patch) 1 ea TRDERM DAILY [facility] Last Admin: 08/10/19 09:31 Dose: Not Given Nicotine (Habitrol) 21 mg TRDERM DAILY [facility] Last Admin: 08/10/19 08:18 Dose: Not Given Pantoprazole Sodium (Protonix) 40 mg PO BIDAC [facility] Last Admin: 08/10/19 05:50 Dose: 40 mg Sodium Chloride (Saline Flush) 10 ml FLUSH ASDIRECTED PRN PRN Reason: Keep Vein Open Last Admin: 08/06/19 17:04 Dose: 10 ml Discontinued Medications Fentanyl (Sublimaze) Confirm Administered Dose 100 mcg .ROUTE .STK-MED ONE Stop: 08/07/19 12:58 Furosemide (Lasix) 40 mg PO DAILY [facility] Last Admin: 08/09/19 12:41 Dose: Not Given Furosemide (Lasix) 40 mg IVPUSH ONETIME ONE Stop: 08/09/19 11:54 Last Admin: 08/09/19 12:29 Dose: 40 mg Furosemide (Lasix) 40 mg PO DAILY [facility] Sodium Chloride (Normal Saline) 1,000 mls @ 999 mls/hr IV ASDIRECTED [facility] Last Admin: 08/06/19 17:03 Dose: 999 mls/hr Magnesium Sulfate 4 gm/ Premix 50 mls @ 12.5 mls/hr IV ONETIME ONE Stop: 08/06/19 21:50 Last Admin: 08/06/19 17:58 Dose: 12.5 mls/hr Potassium Chloride 10 meq/ (Premix) 100 mls @ 100 mls/hr IV Q1H OFE Stop: 08/07/19 01:59 Last Admin: 08/07/19 03:54 Dose: 100 mls/hr Lactated Ringer's (Ringers, Lactated) 1,000 mls @ 999 mls/hr IV ASDIRECTED [facility] Magnesium Sulfate 4 gm/ Premix 50 mls @ 12.5 mls/hr IV ONETIME ONE Stop: 08/06/19 22:39 Last Admin: 08/06/19 21:16 Dose: 12.5 mls/hr Sodium Chloride (Normal Saline) 1,000 mls @ 250 mls/hr IV ASDIRECTED [facility] Last Admin: 08/08/19 04:32 Dose: 250 mls/hr Potassium Chloride 10 meq/ (Premix) 100 mls @ 100 mls/hr IV Q1H OFE Stop: 08/07/19 18:29 Last Admin: 08/07/19 19:47 Dose: 100 mls/hr Lidocaine HCl (Xylocaine-Mpf 1%) Confirm Administered Dose 4 mls @ as directed .ROUTE .STK-MED ONE Stop: 08/07/19 13:08 Magnesium Sulfate 2 gm/ Premix 50 mls @ 25 mls/hr IV ONETIME ONE Stop: 08/08/19 10:49 Last Admin: 08/08/19 09:34 Dose: 25 mls/hr Sodium Phosphate 30 mmole/ (Sodium Chloride) 260 mls @ 130 mls/hr IV Q2H OFE Stop: 08/08/19 12:59 Last Admin: 08/08/19 13:56 Dose: 130 mls/hr Magnesium Sulfate 4 gm/ Premix 50 mls @ 12.5 mls/hr IV ONETIME ONE Stop: 08/09/19 15:52 Last Admin: 08/09/19 12:32 Dose: 12.5 mls/hr Potassium Chloride 10 meq/ (Premix) 100 mls @ 100 mls/hr IV Q1H OFE Stop: 08/09/19 17:59 Last Admin: 08/09/19 20:01 Dose: 100 mls/hr Ketamine HCl (Ketalar) Confirm Administered Dose 500 mg .ROUTE .STK-MED ONE Stop: 08/07/19 12:58 Pantoprazole Sodium (Protonix Iv) 80 mg IVPUSH BOLUS ONE Stop: 08/06/19 16:47 Last Admin: 08/06/19 17:03 Dose: 80 mg Pantoprazole Sodium (Protonix Iv) 40 mg IV Q12HR OFE Last Admin: 08/08/19 08:16 Dose: 40 mg Polyethylene Glycol/Electrolytes (Golytely) 4,000 ml PO ONETIME ONE Stop: 08/06/19 21:55 Last Admin: 08/06/19 22:28 Dose: 4,000 ml Propofol (Diprivan 20 Ml) Confirm Administered Dose 600 mg .ROUTE .STK-MED ONE Stop: 08/07/19 12:58 Propofol (Diprivan 20 Ml) Confirm Administered Dose 200 mg .ROUTE .STK-MED ONE Stop: 08/07/19 14:09 - Exam Quality Assessment: DVT Prophylaxis. No: Supplemental Oxygen General: Alert, Oriented, Cooperative, No Acute Distress, Other (Unkempt) HEENT: Pupils Equal, Pupils Reactive, Mucous Membr. Moist/[place] Neck: Supple, Trachea Midline Lungs: Clear to Auscultation, Normal Respiratory Effort Cardiovascular: Regular Rate, Regular Rhythm GI/Abdominal Exam: Normal Bowel Sounds, Soft, Non-Tender, Distended (mild ) (Male) Exam: Deferred Back Exam: Full Range of Motion Extremities: Normal Range of Motion, Non-Tender, Normal Capillary Refill Peripheral Pulses: 2+: Radial (L), Radial (R), Dorsalis Pedis (L), Dorsalis Pedis (R) Skin: Warm, Dry, Intact, Other (Significant scaling across arms, chest, and back - reports this was present since . Multiple scars. Left axilla fistulization scar. Multiple areas of dirty skin.) Neurological: No New Focal Deficit Psy/Mental Status: Alert, Normal Affect, Normal Mood Sepsis Event Note - Evaluation Sepsis Screening Result: No Definite Risk - Focused Exam Vital Signs: Vital Signs Temp Pulse Resp BP Pulse Ox 08/10/19 08:17 98.1 F 69 14 125/76 92 L 08/10/19 08:15 125/76 08/10/19 04:39 98.1 F 89 12 108/62 98 Date Exam was Performed: 08/10/19 Time Exam was Performed: 13:03 - Problem List & Annotations (1) Acute kidney injury SNOMED Code(s): 96736021, 74788872 Code(s): N17.9 - ACUTE KIDNEY FAILURE, UNSPECIFIED Status: Acute Current Visit: Yes (2) Alcohol abuse SNOMED Code(s): 63614173 Code(s): F10.10 - ALCOHOL ABUSE, UNCOMPLICATED Status: Chronic Priority: Medium Current Visit: Yes (3) Axillary hidradenitis suppurativa SNOMED Code(s): 990942359 Code(s): L73.2 - HIDRADENITIS SUPPURATIVA Status: Chronic Priority: Medium Current Visit: Yes (4) Dry skin dermatitis SNOMED Code(s): 903009448 Code(s): L85.3 - XEROSIS CUTIS Status: Chronic Priority: Medium Current Visit: Yes (5) Hypokalemia SNOMED Code(s): 83028258 Code(s): E87.6 - HYPOKALEMIA Status: Acute Priority: High Current Visit : Yes (6) Hypomagnesemia SNOMED Code(s): 908750065 Code(s): E83.42 - HYPOMAGNESEMIA Status: Acute Priority: High Current Visit: Yes (7) Hyponatremia SNOMED Code(s): 66634991 Code(s): E87.1 - HYPO-OSMOLALITY AND HYPONATREMIA Status: Resolved Priority: High Current Visit: Yes (8) Hypophosphatemia SNOMED Code(s): 9494183 Code(s): E83.39 - OTHER DISORDERS OF PHOSPHORUS METABOLISM Status: Acute Priority: High Current Visit: Yes (9) Inflammatory bowel disease SNOMED Code(s): 99558739 Code(s): K52.9 - NONINFECTIVE GASTROENTERITIS AND COLITIS, UNSPECIFIED Status: Acute Priority: High Current Visit: Yes (10) Orthostatic hypotension SNOMED Code(s): 43539417 Code(s): I95.1 - ORTHOSTATIC HYPOTENSION Status: Resolved Priority: High Current Visit: Yes (11) Poor personal hygiene SNOMED Code(s): 034445979 Code(s): R46.0 - VERY LOW LEVEL OF PERSONAL HYGIENE Status: Chronic Priority: High Current Visit: Yes (12) Smoker SNOMED Code(s): 08845339 Code(s): F17.200 - NICOTINE DEPENDENCE, UNSPECIFIED, UNCOMPLICATED Status: Chronic Priority: Medium Current Visit: Yes (13) Thrombocytopenia SNOMED Code(s): 712750532 Code(s): D69.6 - THROMBOCYTOPENIA, UNSPECIFIED Status: Acute Priority: Medium Current Visit: Yes (14) Upper GI bleed SNOMED Code(s): 08718944 Code(s): K92.2 - GASTROINTESTINAL HEMORRHAGE, UNSPECIFIED Status: Acute Priority: High Current Visit: Yes (15) Hypertension SNOMED Code(s): 09990606 Code(s): I10 - ESSENTIAL (PRIMARY) HYPERTENSION Status: Chronic Priority : Medium Current Visit: No Qualifiers: Hypertension type: essential hypertension Qualified Code(s): I10 - Essential (primary) hypertension (16) Vitamin D deficiency SNOMED Code(s): 46727737 Code(s): E55.9 - VITAMIN D DEFICIENCY, UNSPECIFIED Status: Acute Priority : High Current Visit: Yes (17) Iron deficiency SNOMED Code(s): 71719630 Code(s): E61.1 - IRON DEFICIENCY Status: Acute Priority: High Current Visit: Yes (18) Hypoalbuminemia SNOMED Code(s): 888729291 Code(s): E88.09 - OTH DISORDERS OF PLASMA-PROTEIN METABOLISM, NEC Status: Acute Priority: High Current Visit: Yes (19) Abnormal colonoscopy SNOMED Code(s): 688192996 Code(s): R93.3 - ABNORMAL FINDINGS ON DX IMAGING OF PRT DIGESTIVE TRACT Status: Acute Priority: High Current Visit: Yes - Problem List Review Problem List Initiated/Reviewed/Updated: Yes - Assessment Assessment:: ASSESSMENT 08/06/2019 - Multiple melena episodes prior to admission - Daily drinker and smoker up to 2 weeks ago, currently not drinking and smoking only 1 cigarette a day - Hb on admission 9.9 with thrombocytopenia - Na 132, K 2.7, Cl 96, CO2 19, Mg 0.8, PO4 1.5 and GFR 37 - Patient appears very disheveled - States he moved in to a trailer about 5 days ago - Has not taken a shower in over a week as per patient, appears to be longer - Equivocal heart failure history, patient states " I used to have it but not anymore" 08/07/2019 - Hb down from 9.8 to 8.2 - Platelets down from 83 to 68 - Electrolytes continue to be abnormal - GFR mildly improved - Abdominal US normal except for borderline splenomegaly - Endoscopic procedures today - Gastroduodenoscopy: - Mild cobblestoning of duodenal mucosa. - Abnormal raised, erythematous mucosa of the fundus. - No peptic ulcer or varices or esophagitis. - Colonoscopy (fair prep) - The perianal area appeared the have chronic inflammatory changes, with indurated and excoriated tissue. - No obvious fistula was noted. Digital rectal exam was remarkable for friable, indurated tissue. - No discrete mass was appreciated. - The ileocecal junction was visualized; the mucosa had a hyperemic, polypoid appearance to it which was biopsied. - A small polyp in the cecum was biopsied with forceps. - There were scattered lesions that looked like aphthous ulcers. - There was more significant, broader and deeper ulceration in the transverse colon. - Biopsies of grossly abnormal mucosa were obtained. - No additional polypoid lesions were identified. - No diverticular disease appreciated. - No tumor appreciated on retroflexion of the scope within the rectum. - No further melena episodes 08/08/2019 - BP trend 55-132/70-90 - HR trend 75-104x' - Na up from 133 to 135 - PO4 still 1.3 - Mg down from 2.6 to 1.7 - Hb stable at 8.2 - Workup for IBD ordered: ASCA, FRANKI, anti gliadin and vitamin levels - No more diarrhea 08/09/2019 - Lab results - Vitamin D severely low - Hyponatremia corrected - K 3.6 to 3.1 - Mag down from 1.7 to 1.4 - Iron low at 12 - VS trends - BP: 108-142/68-98 - Tmax 99 - Patient feels well 08/10/2019 - Lab results -Mag down to 1.3 -Phosphorous down to 2.0 -Sodium and potassium WNL - VS Trend: -BP: 108-136/62-90 -Tmax: 98.4 -HR: 69-89 - Feels good - Reports stopped smoking several weeks ago - Pending Labs: ASCA, FRANKI, Anti-Gliadin, EGD/Colonoscopy Biopsy results - Likely discharge tomorrow pending continued stability - Plan Plan:: Inflammatory bowel disease, likely UC Alcohol abuse Thrombocytopenia, improved Severe Vitamin D deficiency Severe iron deficiency Abnormal colonoscopy - Continue Pantoprazole - Start vitamin D and iron replacement today - Needs GI follow up at discharge - Follow up on biopsy results - pending - Follow up on rest of labs - pending - Low fiber GI diet Acute kidney injury Hypomagnesemia Hypophosphatemia - Replace electrolytes - Monitor urine output - Renally dosed medications - Repeat labs as needed Hypertension, stable - Continue to hold home medications Dry skin dermatitis, chronic - Records show chronic dry skin - question autoimmune involvement - Needs outpatient dermatology consult after discharge Smoker - Nicotine patch - refusing - Cessation counseling Poor personal hygiene Hypoalbuminemia - municipal services manager consult - Dietary consult Orthostatic hypotension, resolved Hyponatremia, resolved Hypokalemia, resolved Upper GI bleed, resolved PROPHYLAXIS DVT- Pharmacologic contraindicated, compression stockings GI- Pantoprazole IV BID CODE STATUS: FULL CODE DISPOSITION: Patient will remain admitted medical floor pending repletion of electrolytes and monitorization of labs. He will need to follow up with GI specialist with biopsy results. LOS >96 HRS pending iron infusion, monitoring of Hgb, Disposition plan. Likely discharge tomorrow, 08/11/19 pending stable labs Will need GI and Dermatology follow-up after discharge.
[2019-08-10] MEDS ORDERED: Magnesium Sulfate/Water 4 GM in Premix Bag 1 BAG IV ONE (12:30)
[2019-08-10] MEDS: Cholecalciferol (Vitamin D3) 5,000 UNIT Tab PO SCH (12:40)
[2019-08-10] MEDS ORDERED: Potassium Phosphates 30 MMOLE in Sodium Chloride 0.9% 500 ML IV ONE (13:00)
[2019-08-11] MEDS: Furosemide 40 MG Tab PO SCH (06:47)
[2019-08-11] MEDS: Pantoprazole 40 MG Tab.CR PO SCH (06:48)
[2019-08-11] MEDS ORDERED: Magnesium Sulfate/Water 4 GM in Premix Bag 1 BAG IV ONE (07:34)
[2019-08-11] MEDS: Losartan 25 MG Tab PO SCH (08:05)
[2019-08-11] MEDS: Cholecalciferol (Vitamin D3) 5,000 UNIT Tab PO SCH (08:05)
[2019-08-11] MEDS: Nicotine 21 MG/24 Hr Patch TRDERM SCH (08:46)
[2019-08-11] MEDS ORDERED: Magnesium Oxide 400 MG Tab PO SCH (09:00)
--- NOTE | 2019-08-11 11:24 | PCM.DCSUM1 ---
Discharge Summary - Hospital Course HPI Initial Comments: This is a 59-year-old male with past medical history of congestive heart failure and alcoholism who comes to the emergency department complaining of continuous melanous stools since Saturday of this week. As per patient this came on suddenly while he was sitting down. He has been unable to control his bowel movements from 6-7/day and 3-5/night. Denies any prior episodes, colonoscopy or family history of colon cancer. Diagnosis: Stroke: No - Discharge Data Discharge Date: 08/11/19 (Admit date: 08/06/19) Discharge Disposition: Home, Self-Care 01 Condition: Good - Referral to Home Health Primary Care Physician: Colt Martinez MD - Discharge Diagnosis/Problem(s) (1) Acute kidney injury SNOMED Code(s): 20698202, 83593684 ICD Code: N17.9 - ACUTE KIDNEY FAILURE, UNSPECIFIED Status: Acute (2) Alcohol abuse SNOMED Code(s): 59702839 ICD Code: F10.10 - ALCOHOL ABUSE, UNCOMPLICATED Status: Chronic Priority : Medium (3) Axillary hidradenitis suppurativa SNOMED Code(s): 911035823 ICD Code: L73.2 - HIDRADENITIS SUPPURATIVA Status: Chronic Priority: Medium (4) Dry skin dermatitis SNOMED Code(s): 207291816 ICD Code: L85.3 - XEROSIS CUTIS Status: Chronic Priority: Medium (5) Hypokalemia SNOMED Code(s): 12585581 ICD Code: E87.6 - HYPOKALEMIA Status: Resolved Priority: High (6) Hypomagnesemia SNOMED Code(s): 647657150 ICD Code: E83.42 - HYPOMAGNESEMIA Status: Acute Priority: High (7) Hyponatremia SNOMED Code(s): 97598980 ICD Code: E87.1 - HYPO-OSMOLALITY AND HYPONATREMIA Status: Resolved Priority: High (8) Hypophosphatemia SNOMED Code(s): 9612976 ICD Code: E83.39 - OTHER DISORDERS OF PHOSPHORUS METABOLISM Status: Resolved Priority: High (9) Inflammatory bowel disease SNOMED Code(s): 52847305 ICD Code: K52.9 - NONINFECTIVE GASTROENTERITIS AND COLITIS, UNSPECIFIED Status: Acute Priority: High (10) Orthostatic hypotension SNOMED Code(s): 93619464 ICD Code: I95.1 - ORTHOSTATIC HYPOTENSION Status: Resolved Priority: High (11) Poor personal hygiene SNOMED Code(s): 061368937 ICD Code: R46.0 - VERY LOW LEVEL OF PERSONAL HYGIENE Status: Chronic Priority: High (12) Smoker SNOMED Code(s): 13259272 ICD Code: F17.200 - NICOTINE DEPENDENCE, UNSPECIFIED, UNCOMPLICATED Status : Chronic Priority: Medium (13) Thrombocytopenia SNOMED Code(s): 155787134 ICD Code: D69.6 - THROMBOCYTOPENIA, UNSPECIFIED Status: Acute Priority: Medium (14) Upper GI bleed SNOMED Code(s): 02768545 ICD Code: K92.2 - GASTROINTESTINAL HEMORRHAGE, UNSPECIFIED Status: Acute Priority: High (15) Hypertension SNOMED Code(s): 74051911 ICD Code: I10 - ESSENTIAL (PRIMARY) HYPERTENSION Status: Chronic Priority : Medium Qualifiers: Hypertension type: essential hypertension Qualified Code(s): I10 - Essential (primary) hypertension (16) Vitamin D deficiency SNOMED Code(s): 56730999 ICD Code: E55.9 - VITAMIN D DEFICIENCY, UNSPECIFIED Status: Acute Priority: High (17) Iron deficiency SNOMED Code(s): 04221086 ICD Code: E61.1 - IRON DEFICIENCY Status: Acute Priority: High (18) Hypoalbuminemia SNOMED Code(s): 567198526 ICD Code: E88.09 - OTH DISORDERS OF PLASMA-PROTEIN METABOLISM, NEC Status: Acute Priority: High (19) Abnormal colonoscopy SNOMED Code(s): 987693107 ICD Code: R93.3 - ABNORMAL FINDINGS ON DX IMAGING OF PRT DIGESTIVE TRACT Status: Acute Priority: High (20) Abnormal findings on esophagogastroduodenoscopy (EGD) SNOMED Code(s): 791599903, 814110971 ICD Code: R19.8 - OTH SYMPTOMS AND SIGNS INVOLVING THE DGSTV SYS AND ABDOMEN Status: Acute Priority: High - Patient Summary/Data Consults: Consultations 08/06/19 18:31 Consult to Case Management/[employer] [CONS] Routine Consult to Physician [CONS] Routine 08/10/19 10:34 Consult to Physical Therapy [PT Evaluation and Treatment] [CONS] Routine OT Evaluation and Treatment [CONS] Routine 08/10/19 11:06 Consult to Shape [employer] [CONS] Routine Labs Pending at D/C: Pathology report from EGD and colonoscopy ASCA, FRANKI, Anti-Gliadin laboratory tests Recommended Follow-up Testing/Procedures: Follow-up with PCP within 7-10 days of discharge. -Recommend repeat CMP, Magnesium, Phosphorous at that visit -Pathology report is still pending for EGD and Colonoscopy. This will need to be reviewed by PCP. Follow-up with GI and Dermatology as directed. Hospital Course: Nils was admitted to medical floor due to electrolyte abnormalities and an upper GI bleed. He reported that he had been a daily drinker and smoker up until about 2 weeks prior to admission that he had moved into a trailer about 5 days prior. He reports he is not had the opportunity shower in over a week and he appeared very disabled. He was placed on Protonix and his potassium, magnesium, and phosphorus were all supplemented. Dr. Reid, general surgeon , was consulted for EGD and colonoscopy. EGD revealed mild cobblestoning of duodenal mucosa and abnormal raised erythematous mucosa of the fundus. There is no peptic ulcer varices noted. No esophagitis noted. Colonoscopy was obtained noting a fair prep. The perianal area appeared to have chronic inflammatory changes with indurated excoriated tissue. There is no obvious fistula and the digital rectal exam was remarkable for friable, indurated tissue. There is no discrete mass appreciated. The ileocecal junction was visualized and the mucosa had a hyperemic, polypoid appearance to it which was biopsied. A small polyp in the cecum was biopsied with forceps. There were scattered lesions that look like aphthous ulcers. There was more significant, broader, and deeper ulceration in the transverse colon. Biopsies of grossly abnormal mucosa were obtained. There were no additional polypoid lesions or diverticular disease noted. There is no tumor appreciated on retroflexion of the scope within the rectum. During admission his melena had stopped and his bowel movements became more regular. His Hgb did trend up. ASCA, FRANKI, anti- gliadin, and EGD/colonoscopy biopsy results are all still pending. Recommending GI follow-up and case management attempted to schedule this appointment. They stated they will contact the patient to set up a time. Patient reports that he is currently unemployed and he will have difficulty making it to this appointment. It was stressed how important this appointment is to the patient. While here he was noted to have some acute renal injury which resolved with IV fluids. He was noted to have orthostatic hypotension in the ED which resolved. Patient was also noted to have very dry, scaling skin which the patient reports has been chronic since he was a child. There is some question as to whether or not this could be autoimmune related. Recommending outpatient dermatology consult which, again, the patient reports he will likely be unable to attend. Dermatology office will contact patient to set up appointment. His vitamin D was found to be very low at less than 5 and he was started on 5000 units daily supplementation. Iron was also very low at 12 and he was started on every 48 hour 150mg iron supplementation. He was also prescribed 6 more days of 400 mg p.o. magnesium supplementation and 15 more days of twice daily AC 40 mg Protonix. He was discharged today. Recommend follow-up appointment with PCP, Dr. Martinez, within 7 to 10 days of discharge or sooner if needed. Recommend recheck CBC, CMP, magnesium, and phosphorus at this appointment. Recommend GI and Dermatology follow-up. Patients Lasix was discontinued by Dr. Engel at discharge as he reports he has not been taking it for sometime an his chronic heart failure appears to be diastolic. Again, ASCA, FRANKI, anti-gliadin, and EGD/colonoscopy pathology are all still ending and will need to be discussed with the patient by the primary care provider. Prior to discharge I discussed smoking status with Nils. He reported that he stopped smoking several weeks ago and he is doing this cold turkey. He refused patches while here and states he did not have any cravings. He refuses patches or cessation aids on discharge. He was given practical resources such as [place] quits and the [facility] tobacco cessation program contact information. We also discussed how he could utilize his primary care provider for resources if needed. - Patient Instructions Diet: GI Soft/Low Residue/Low Fiber Activity: As Tolerated Notify Provider of: Fever, Increased Pain, Nausea and/or Vomiting Other/Special Instructions: Follow-up with primary care provider, Dr. Martinez, within 7-10 days of discharge, sooner if needed. Dr. Martinez will recieve a copy of your pathology report from your colonoscopy and EGD. This is not back yet. It is important you go over this with him at your next appointment. Follow-up with GI and Dermatology outpatient as directed. Take all new medications as prescribed. Resume home medications as directed. We discussed your smoking status. You indicated you stopped somoking several weeks ago. You refused nicotine patches. Should you change your mind you were given resources such as [place] Quits and the [facility] Tobacco Cessation Program. These programs will have resources for you. You may also discuss this with Dr. Martinez if needed. Should symptoms return or worsen, contact primary care provider or return to the Emergency Department. - Discharge Plan *PRESCRIPTION DRUG MONITORING PROGRAM REVIEWED*: No *COPY OF PRESCRIPTION DRUG MONITORING REPORT IN PATIENT [place]: No Prescriptions/Med Rec: RX: Cholecalciferol (Vitamin D3) [Vitamin D3] 5,000 unit PO DAILY #30 tablet RX: Iron Polysaccharide Complex [Ferric X-150] 150 mg PO Q48H #20 capsule RX: Magnesium Oxide 400 mg PO DAILY #12 tablet RX: Pantoprazole [ProTONIX] 40 mg PO BIDAC #30 tab.cr Home Medications: Home Meds RX: Olmesartan Medoxomil [Benicar] 20 mg PO DAILY 03/16/18 [History] RX: Furosemide [Lasix] 0 mg PO DAILY 08/06/19 [History] RX: Cholecalciferol (Vitamin D3) [Vitamin D3] 5,000 unit PO DAILY #30 tablet [Rx] RX: Iron Polysaccharide Complex [Ferric X-150] 150 mg PO Q48H #20 capsule [Rx] RX: Magnesium Oxide 400 mg PO DAILY #12 tablet 08/11/19 [Rx] RX: Pantoprazole [ProTONIX] 40 mg PO BIDAC #30 tab.cr 08/11/19 [Rx] Oxygen Therapy Mode: Room Air Patient Handouts: Hypomagnesemia, Heart Failure Action Plan, Gastrointestinal Bleeding, [id number], Low-Fiber Eating Plan, Steps to Quit Smoking Referrals: Colt Martinez MD [Primary Care Provider] - 08/17/19 1:00 pm (Please follow up with Dr. Martinez on Saturday, August 16 at 1:00 P.M.) - Discharge Summary/Plan Comment DC Time >30 min.: Yes (45 mins ) - General Info Date of Service: 08/11/19 Admission Dx/Problem (Free Text: Admission Diagnosis/Problem Admission Diagnosis/Problem Melena Functional Status: Reports: Pain Controlled, Tolerating Diet, Ambulating, Urinating. Denies: New Symptoms - Review of Systems General: Reports: No Symptoms. Denies: Fever, Weakness, Fatigue, Malaise, Chills HEENT: Reports: No Symptoms. Denies: Headaches, Sore Throat Pulmonary: Reports: No Symptoms. Denies: Shortness of Breath, Cough, Sputum, Wheezing Cardiovascular: Reports: No Symptoms. Denies: Chest Pain, Palpitations, Dyspnea on Exertion, Orthopnea, Edema Gastrointestinal: Reports: No Symptoms. Denies: Abdominal Pain, Constipation, Diarrhea, Nausea, Vomiting Genitourinary: Reports: No Symptoms. Denies: Pain Musculoskeletal: Reports: No Symptoms Skin: Reports: No Symptoms. Denies: Cyanosis Neurological: Reports: No Symptoms. Denies: Confusion, Difficulty Walking, Weakness, Gait Disturbance Psychiatric: Reports: No Symptoms - Patient Data Vitals - Most Recent: Last Vital Signs Temp 99.1 F 08/11/19 07:29 Pulse 75 08/11/19 07:29 Resp 20 08/11/19 07:29 BP 114/68 08/11/19 08:05 Pulse Ox 94 L 08/11/19 07:29 Orthostatic Blood Pressure [ 84/70 Standing] Orthostatic Blood Pressure [ 118/77 Supine] Weight - Most Recent: 230 lb I&O - Last 24 hours: Intake & Output 08/10/19 08/11/19 08/11/19 22:59 06:59 14:59 Intake Total 2560 2857 720 Output Total 4700 2400 Balance -2140 457 720 Lab Results - Last 24 hrs: Laboratory Results - last 24 hr 08/10/19 08/11/19 08/11/19 Range/Units 09:02 04:44 04:44 WBC 6.47 (4.23-9.07) K/mm3 RBC 2.59 L (4.63-6.08) M/mm3 Hgb 7.8 L (13.7-17.5) gm/dl Hct 26.5 L (40.1-51.0) % MCV 102.3 H (79.0-92.2) fl MCH 30.1 (25.7-32.2) pg MCHC 29.4 L (32.2-35.5) g/dl RDW Std Deviation 59.1 H (35.1-43.9) fL Plt Count 129 L (163-337) K/mm3 MPV 10.3 (9.4-12.3) fl Neut % (Auto) 75.3 H (34.0-67.9) % Lymph % (Auto) 13.1 L (21.8-53.1) % [place] % (Auto) 10.5 (5.3-12.2) % Eos % (Auto) 0.6 L (0.8-7.0) Baso % (Auto) 0.3 (0.1-1.2) % Neut # (Auto) 4.87 (1.78-5.38) K/mm3 Lymph # (Auto) 0.85 L (1.32-3.57) K/mm3 [place] # (Auto) 0.68 (0.30-0.82) K/mm3 Eos # (Auto) 0.04 (0.04-0.54) K/mm3 Baso # (Auto) 0.02 (0.01-0.08) K/mm3 Manual Slide Review Sodium 136 138 (136-145) mEq/L Potassium 3.6 3.6 (3.5-5.1) mEq/L Chloride 102 103 (98-107) mEq/L Carbon Dioxide 25 28 (21-32) mEq/L Anion Gap 12.6 10.6 (5-15) BUN 18 18 (7-18) mg/dL Creatinine 1.6 H 1.4 H (0.7-1.3) mg/dL Est Cr Clr Drug Dosing 54.25 62.00 mL/min Estimated GFR (MDRD) 52 (>60) mL/min BUN/Creatinine Ratio 11.3 L 12.9 L (14-18) Glucose 151 H 103 (74-106) mg/dL Calcium 8.0 L 8.1 L (8.5-10.1) mg/dL Phosphorus 2.0 L 3.2 (2.6-4.7) mg/dL Magnesium 1.3 L 1.5 L (1.8-2.4) mg/dl Total Bilirubin 0.4 (0.2-1.0) mg/dL AST 13 L (15-37) U/L ALT 14 L (16-63) U/L Alkaline Phosphatase 139 H (46-116) U/L Total Protein 6.9 (6.4-8.2) g/dl Albumin 2.5 L (3.4-5.0) g/dl Globulin 4.4 gm/dL Albumin/Globulin Ratio 0.6 L (1-2) Med Orders - Current: Current Medications Cholecalciferol (Vitamin D3) 5,000 unit PO DAILY [facility] Last Admin: 08/11/19 08:05 Dose: 5,000 unit Magnesium Sulfate 4 gm/ Premix 50 mls @ 12.5 mls/hr IV ONETIME ONE Stop: 08/11/19 11:33 Last Admin: 08/11/19 08:05 Dose: 12.5 mls/hr Losartan Potassium (Cozaar) 50 mg PO DAILY [facility] Last Admin: 08/11/19 08:05 Dose: 50 mg Magnesium Oxide (Magnesium Oxide) 400 mg PO DAILY [facility] Last Admin: 08/11/19 08:05 Dose: 400 mg Miscellaneous Information (Remove Patch) 1 ea TRDERM DAILY [facility] Last Admin: 08/11/19 08:47 Dose: Not Given Nicotine (Habitrol) 21 mg TRDERM DAILY [facility] Last Admin: 08/11/19 08:46 Dose: Not Given Pantoprazole Sodium (Protonix) 40 mg PO BIDAC [facility] Last Admin: 08/11/19 06:48 Dose: 40 mg Sodium Chloride (Saline Flush) 10 ml FLUSH ASDIRECTED PRN PRN Reason: Keep Vein Open Last Admin: 08/06/19 17:04 Dose: 10 ml Discontinued Medications Fentanyl (Sublimaze) Confirm Administered Dose 100 mcg .ROUTE .STK-MED ONE Stop: 08/07/19 12:58 Furosemide (Lasix) 40 mg PO DAILY [facility] Last Admin: 08/09/19 12:41 Dose: Not Given Furosemide (Lasix) 40 mg IVPUSH ONETIME ONE Stop: 08/09/19 11:54 Last Admin: 08/09/19 12:29 Dose: 40 mg Furosemide (Lasix) 40 mg PO DAILY [facility] Furosemide (Lasix) 40 mg PO DAILY@0600 [facility] Last Admin: 08/11/19 06:47 Dose: Not Given Sodium Chloride (Normal Saline) 1,000 mls @ 999 mls/hr IV ASDIRECTED [facility] Last Admin: 08/06/19 17:03 Dose: 999 mls/hr Magnesium Sulfate 4 gm/ Premix 50 mls @ 12.5 mls/hr IV ONETIME ONE Stop: 08/06/19 21:50 Last Admin: 08/06/19 17:58 Dose: 12.5 mls/hr Potassium Chloride 10 meq/ (Premix) 100 mls @ 100 mls/hr IV Q1H [facility] Stop: 08/07/19 01:59 Last Admin: 08/07/19 03:54 Dose: 100 mls/hr Lactated Ringer's (Ringers, Lactated) 1,000 mls @ 999 mls/hr IV ASDIRECTED [facility] Magnesium Sulfate 4 gm/ Premix 50 mls @ 12.5 mls/hr IV ONETIME ONE Stop: 08/06/19 22:39 Last Admin: 08/06/19 21:16 Dose: 12.5 mls/hr Sodium Chloride (Normal Saline) 1,000 mls @ 250 mls/hr IV ASDIRECTED [facility] Last Admin: 08/08/19 04:32 Dose: 250 mls/hr Potassium Chloride 10 meq/ (Premix) 100 mls @ 100 mls/hr IV Q1H [facility] Stop: 08/07/19 18:29 Last Admin: 08/07/19 19:47 Dose: 100 mls/hr Lidocaine HCl (Xylocaine-Mpf 1%) Confirm Administered Dose 4 mls @ as directed .ROUTE .STK-MED ONE Stop: 08/07/19 13:08 Magnesium Sulfate 2 gm/ Premix 50 mls @ 25 mls/hr IV ONETIME ONE Stop: 08/08/19 10:49 Last Admin: 08/08/19 09:34 Dose: 25 mls/hr Sodium Phosphate 30 mmole/ (Sodium Chloride) 260 mls @ 130 mls/hr IV Q2H [facility] Stop: 08/08/19 12:59 Last Admin: 08/08/19 13:56 Dose: 130 mls/hr Magnesium Sulfate 4 gm/ Premix 50 mls @ 12.5 mls/hr IV ONETIME ONE Stop: 08/09/19 15:52 Last Admin: 08/09/19 12:32 Dose: 12.5 mls/hr Potassium Chloride 10 meq/ (Premix) 100 mls @ 100 mls/hr IV Q1H [facility] Stop: 08/09/19 17:59 Last Admin: 08/09/19 20:01 Dose: 100 mls/hr Ferric Sodium Gluconate Complex 250 mg/ Sodium Chloride 120 mls @ 60 mls/hr IV ONETIME ONE Stop: 08/10/19 13:59 Last Admin: 08/10/19 12:42 Dose: 60 mls/hr Magnesium Sulfate 4 gm/ Premix 50 mls @ 12.5 mls/hr IV ONETIME ONE Stop: 08/10/19 16:29 Last Admin: 08/10/19 14:41 Dose: 12.5 mls/hr Potassium Phosphate 30 mmole/ (Sodium Chloride) 510 mls @ 102 mls/hr IV ONETIME ONE Stop: 08/10/19 17:59 Last Admin: 08/10/19 18:03 Dose: 102 mls/hr Ketamine HCl (Ketalar) Confirm Administered Dose 500 mg .ROUTE .STK-MED ONE Stop: 08/07/19 12:58 Pantoprazole Sodium (Protonix Iv) 80 mg IVPUSH BOLUS ONE Stop: 08/06/19 16:47 Last Admin: 08/06/19 17:03 Dose: 80 mg Pantoprazole Sodium (Protonix Iv) 40 mg IV Q12HR [facility] Last Admin: 08/08/19 08:16 Dose: 40 mg Polyethylene Glycol/Electrolytes (Golytely) 4,000 ml PO ONETIME ONE Stop: 08/06/19 21:55 Last Admin: 08/06/19 22:28 Dose: 4,000 ml Propofol (Diprivan 20 Ml) Confirm Administered Dose 600 mg .ROUTE .STK-MED ONE Stop: 08/07/19 12:58 Propofol (Diprivan 20 Ml) Confirm Administered Dose 200 mg .ROUTE .STK-MED ONE Stop: 08/07/19 14:09 - Exam Quality Assessment: Reports: DVT Prophylaxis. Denies: Supplemental Oxygen General: Reports: Alert, Oriented, Cooperative, No Acute Distress HEENT: Reports: Pupils Equal, Pupils Reactive, Mucous Membr. Moist/[place] Neck: Reports: Supple, Trachea Midline Lungs: Reports: Clear to Auscultation, Normal Respiratory Effort Cardiovascular: Reports: Regular Rate, Regular Rhythm GI/Abdominal Exam: Normal Bowel Sounds, Soft, Non-Tender, No Organomegaly, Distended (mild ) (Male) Exam: Deferred Rectal (Males) Exam: Deferred Back Exam: Reports: Full Range of Motion Extremities: Normal Inspection, Normal Range of Motion, Non-Tender, No Pedal Edema, Normal Capillary Refill Skin: Reports: Warm, Dry, Intact, Other (Significant dry scaling of skin over entire body. ) Neurological: Reports: No New Focal Deficit Psy/Mental Status: Reports: Alert, Normal Affect, Normal Mood
== END 2019-08-11 11:58 | disposition home or self-care (01) | DRG 378 ==
LOC: JD.ED 16:18 → JD.ICU 18:34 → JD.MS 08-07 19:22
PROVIDERS: ADMIT Internal Medicine; ATTEND Internal Medicine
PROC: 0DBH8ZX Excision of Cecum, Via Natural or Artificial Opening Endoscopic, Diagnostic (ICD-10-PCS; principal; 2019-08-07)
PROC: 0DB98ZX Excision of Duodenum, Via Natural or Artificial Opening Endoscopic, Diagnostic (ICD-10-PCS; 2019-08-07)
PROC: 0DB68ZX Excision of Stomach, Via Natural or Artificial Opening Endoscopic, Diagnostic (ICD-10-PCS; 2019-08-07)
PROC: 0DBC8ZX Excision of Ileocecal Valve, Via Natural or Artificial Opening Endoscopic, Diagnostic (ICD-10-PCS; 2019-08-07)
PROC: 0DBE8ZX Excision of Large Intestine, Via Natural or Artificial Opening Endoscopic, Diagnostic (ICD-10-PCS; 2019-08-07)
DX: K92.1 Melena (principal); N17.9 Acute kidney failure, unspecified; E87.1 Hypo-osmolality and hyponatremia; K51.90 Ulcerative colitis, unspecified, without complications; I50.32 Chronic diastolic (congestive) heart failure; F10.10 Alcohol abuse, uncomplicated; L73.2 Hidradenitis suppurativa; E87.6 Hypokalemia; L85.3 Xerosis cutis; E83.42 Hypomagnesemia; K52.9 Noninfective gastroenteritis and colitis, unspecified; I95.1 Orthostatic hypotension; D64.9 Anemia, unspecified; K62.89 Other specified diseases of anus and rectum; E88.09 Other disorders of plasma-protein metabolism, not elsewhere classified; R93.3 Abnormal findings on diagnostic imaging of other parts of digestive tract; R91.8 Other nonspecific abnormal finding of lung field; K63.5 Polyp of colon; I11.0 Hypertensive heart disease with heart failure; D69.6 Thrombocytopenia, unspecified; E83.39 Other disorders of phosphorus metabolism; F17.210 Nicotine dependence, cigarettes, uncomplicated; Z71.6 Tobacco abuse counseling; Z79.899 Other long term (current) drug therapy
CPT/HCPCS: 00813; 36415; 36600; 76700; 76700-26; 80048; 80053; 80306; 80307; 81001; 82306; 82607; 82803; 82977; 83516; 83540; 83735; 84100; 84466; 85025; 85610; 86140; 86225; 86235; 86671; 86850; 86900; 86901; 93005; 96361; 96365; 96368; 96375; 97165-GO; 99285-25; A9270-GY; C9113; J1940; J2001; J2704; J2916; J3010; J3475; J3480; J3490; J7030; J7040; J7050; U0002

== ENCOUNTER 2023-03-30 13:27 | Inpatient (IN) | payer BC ==
[2023-03-30] MEDS: Sodium Chloride 0.9% 10 ML Syringe FLUSH PRN (13:50)
[2023-03-30 14:37] LABS: BASOPHILS ABSOLUTE AUTO 0.1 K/mm3 (0.0-0.2); BASOPHILS PERCENT AUTO 0.9 % (0.0-1.0); EOSINOPHILS ABSOLUTE AUTO 0.1 K/mm3 (0.0-0.4); EOSINOPHILS PERCENT AUTO 1.3 % (0.0-6.0); HEMATOCRIT 36.2 % (42.0-52.0); HEMOGLOBIN 11.9 gm/dl (14.0-18.0); IMMATURE GRAN ABSOLUTE AUTO 0.12 K/mm3 (0.00-0.05); IMMATURE GRAN PERCENT AUTO 1.7 % (0.0-0.4); LYMPHOCYTES ABSOLUTE AUTO 1.3 K/mm3 (1.0-4.8); LYMPHOCYTES PERCENT AUTO 18.9 % (24.0-44.0); MEAN CORPUSCULAR HEMOGLOBIN 33.6 pg (28.0-32.0); MEAN CORPUSCULAR HGB CONC 32.9 g/dl (32.0-36.0); MEAN CORPUSCULAR VOLUME 102.3 fl (83.0-99.0); MEAN PLATELET VOLUME 9.1 fl (9.4-12.4); MONOCYTES ABSOLUTE AUTO 0.4 K/mm3 (0.0-0.8); MONOCYTES PERCENT AUTO 5.3 % (0.0-8.0); NEUTROPHILS PERCENT AUTO 71.9 % (41.0-71.0); PLATELET COUNT,PLT 151 K/mm3 (150-400); RED BLOOD CELL COUNT 3.54 M/mm3 (4.52-5.90); WHITE BLOOD CELL COUNT,WBC 6.93 K/mm3 (3.9-11.3)
[2023-03-30] MEDS: Furosemide 40 MG/4 ML VIAL IVPUSH ONE (14:48)
[2023-03-30] MEDS: Albuterol/Ipratropium 3.0-0.5 MG/3 ML Neb Soln NEB ONE (14:50)
[2023-03-30 15:07] LABS: A/G RATIO 0.7 (1-2); ALBUMIN 3.2 g/dl (3.4-5.0); ANION GAP 12.5 (5-15); BILIRUBIN TOTAL 1.2 mg/dL (0.2-1.0); BUN/CREATININE RATIO 22.5 (14-18); C-REACTIVE PROTEIN 5.4 mg/dL (<1.0); CALCIUM 8.1 mg/dL (8.5-10.1); CREATININE 1.2 mg/dL (0.7-1.3); EST CRCL DRUG DOSING (CG) 68.85 mL/min; POTASSIUM,K 4.5 mEq/L (3.5-5.1); PROTEIN TOTAL,TP 7.7 g/dl (6.4-8.2)
[2023-03-30] MEDS: cefTRIAXone 2 GM in Sodium Chloride 0.9% 100 ML IV ONE (15:59)
[2023-03-30 16:14] LABS: CORONAVIRUS COVID-19 NAA NEGATIVE (NEGATIVE); INFLUENZA A NAA NEGATIVE (NEGATIVE); RESPIRATORY SYNCYTIAL VIR NAA NEGATIVE (NEGATIVE)
[2023-03-30] MEDS ORDERED: Docusate Sodium 100 MG Cap PO PRN (16:53)
[2023-03-30] MEDS ORDERED: Acetaminophen 325 MG Tab PO PRN (16:53)
[2023-03-30 17:30] LABS: MAGNESIUM 1.9 mg/dL (1.8-2.4); PHOSPHORUS 2.1 mg/dL (2.6-4.7); TSH 25.818 uIU/mL (0.358-3.74)
[2023-03-30 19:40] LABS: T4 FREE 0.67 ng/dL (0.76-1.46)
[2023-03-30] MEDS: Ipratropium 0.02% 0.5 MG/2.5 ML Neb Soln NEB PRN (20:03)
[2023-03-30] MEDS: Metoprolol Tartrate 25 MG Tab PO SCH (20:34)
[2023-03-30] MEDS: Amiodarone 200 MG Tab PO SCH (20:35)
[2023-03-30] MEDS: Apixaban 5 MG Tab PO SCH (20:35)
[2023-03-30] MEDS: Multivitamin Tab PO ONE (20:41)
[2023-03-30] MEDS: Nicotine 14 MG/24 Hr Patch TRDERM SCH (20:43)
[2023-03-30] MEDS: LORazepam 1 MG Tab PO SCH (21:40)
[2023-03-30] MEDS: Furosemide 20 MG/2 ML VIAL IVPUSH SCH (21:41)
[2023-03-31 05:30] LABS: BASOPHILS PERCENT AUTO 0.7 % (0.0-1.0); EOSINOPHILS ABSOLUTE AUTO 0.1 K/mm3 (0.0-0.4); HEMATOCRIT 35.1 % (42.0-52.0); HEMOGLOBIN 11.7 gm/dl (14.0-18.0); IMMATURE GRAN ABSOLUTE AUTO 0.05 K/mm3 (0.00-0.05); IMMATURE GRAN PERCENT AUTO 0.8 % (0.0-0.4); LYMPHOCYTES ABSOLUTE AUTO 0.9 K/mm3 (1.0-4.8); LYMPHOCYTES PERCENT AUTO 15.9 % (24.0-44.0); MEAN CORPUSCULAR HEMOGLOBIN 34.1 pg (28.0-32.0); MEAN CORPUSCULAR HGB CONC 33.3 g/dl (32.0-36.0); MEAN CORPUSCULAR VOLUME 102.3 fl (83.0-99.0); MEAN PLATELET VOLUME 8.8 fl (9.4-12.4); MONOCYTES ABSOLUTE AUTO 0.4 K/mm3 (0.0-0.8); MONOCYTES PERCENT AUTO 7.3 % (0.0-8.0); NEUTROPHILS ABSOLUTE AUTO 4.4 K/mm3 (1.8-7.7); NEUTROPHILS PERCENT AUTO 74.3 % (41.0-71.0); PLATELET COUNT,PLT 134 K/mm3 (150-400); RED BLOOD CELL COUNT 3.43 M/mm3 (4.52-5.90); WHITE BLOOD CELL COUNT,WBC 5.91 K/mm3 (3.9-11.3)
[2023-03-31 06:02] LABS: A/G RATIO 0.7 (1-2); ANION GAP 11.3 (5-15); BILIRUBIN TOTAL 2.1 mg/dL (0.2-1.0); BUN/CREATININE RATIO 20.9 (14-18); CALCIUM 8.2 mg/dL (8.5-10.1); CREATININE 1.1 mg/dL (0.7-1.3); EST CRCL DRUG DOSING (CG) 75.11 mL/min; POTASSIUM,K 4.3 mEq/L (3.5-5.1); PROTEIN TOTAL,TP 7.5 g/dl (6.4-8.2)
[2023-03-31] MEDS: Thiamine 100 MG Tab PO SCH (08:52)
[2023-03-31] MEDS: Folic Acid 1 MG Tab PO SCH (08:52)
[2023-03-31] MEDS: Pantoprazole 40 MG Tab.CR PO SCH (08:52)
[2023-03-31] MEDS: Spironolactone 25 MG Tab PO SCH (08:53)
[2023-03-31] MEDS: Albuterol/Ipratropium 3.0-0.5 MG/3 ML Neb Soln NEB PRN (09:38)
[2023-03-31] MEDS ORDERED: cefTRIAXone 1 GM Vial IM SCH (17:00)
[2023-03-31] MEDS: cefTRIAXone 1 GM in Sodium Chloride 0.9% 100 ML IV SCH (19:55)
[2023-04-01 05:43] LABS: BASOPHILS PERCENT AUTO 0.8 % (0.0-1.0); EOSINOPHILS ABSOLUTE AUTO 0.1 K/mm3 (0.0-0.4); EOSINOPHILS PERCENT AUTO 2.4 % (0.0-6.0); HEMATOCRIT 36.6 % (42.0-52.0); HEMOGLOBIN 11.9 gm/dl (14.0-18.0); IMMATURE GRAN ABSOLUTE AUTO 0.06 K/mm3 (0.00-0.05); IMMATURE GRAN PERCENT AUTO 1.2 % (0.0-0.4); LYMPHOCYTES PERCENT AUTO 20.1 % (24.0-44.0); MEAN CORPUSCULAR HGB CONC 32.5 g/dl (32.0-36.0); MEAN CORPUSCULAR VOLUME 101.4 fl (83.0-99.0); MEAN PLATELET VOLUME 8.9 fl (9.4-12.4); MONOCYTES ABSOLUTE AUTO 0.3 K/mm3 (0.0-0.8); MONOCYTES PERCENT AUTO 6.9 % (0.0-8.0); NEUTROPHILS ABSOLUTE AUTO 3.4 K/mm3 (1.8-7.7); NEUTROPHILS PERCENT AUTO 68.6 % (41.0-71.0); PLATELET COUNT,PLT 136 K/mm3 (150-400); RED BLOOD CELL COUNT 3.61 M/mm3 (4.52-5.90); WHITE BLOOD CELL COUNT,WBC 4.92 K/mm3 (3.9-11.3)
[2023-04-01 06:08] LABS: A/G RATIO 0.7 (1-2); ALBUMIN 3.1 g/dl (3.4-5.0); ANION GAP 8.2 (5-15); BILIRUBIN TOTAL 2.7 mg/dL (0.2-1.0); CALCIUM 8.6 mg/dL (8.5-10.1); EST CRCL DRUG DOSING (CG) 82.62 mL/min; POTASSIUM,K 4.2 mEq/L (3.5-5.1); PROTEIN TOTAL,TP 7.8 g/dl (6.4-8.2)
[2023-04-02 10:00] LABS: ANION GAP 9.3 (5-15); BUN/CREATININE RATIO 21.8 (14-18); CALCIUM 9.1 mg/dL (8.5-10.1); CREATININE 1.1 mg/dL (0.7-1.3); EST CRCL DRUG DOSING (CG) 75.11 mL/min; POTASSIUM,K 4.3 mEq/L (3.5-5.1)
[2023-04-02 10:17] LABS: BASOPHILS PERCENT AUTO 0.5 % (0.0-1.0); EOSINOPHILS ABSOLUTE AUTO 0.1 K/mm3 (0.0-0.4); EOSINOPHILS PERCENT AUTO 1.8 % (0.0-6.0); HEMATOCRIT 36.7 % (42.0-52.0); IMMATURE GRAN ABSOLUTE AUTO 0.06 K/mm3 (0.00-0.05); IMMATURE GRAN PERCENT AUTO 1.1 % (0.0-0.4); LYMPHOCYTES ABSOLUTE AUTO 1.3 K/mm3 (1.0-4.8); LYMPHOCYTES PERCENT AUTO 22.9 % (24.0-44.0); MEAN CORPUSCULAR HGB CONC 32.7 g/dl (32.0-36.0); MEAN CORPUSCULAR VOLUME 100.8 fl (83.0-99.0); MEAN PLATELET VOLUME 8.9 fl (9.4-12.4); MONOCYTES ABSOLUTE AUTO 0.5 K/mm3 (0.0-0.8); MONOCYTES PERCENT AUTO 8.3 % (0.0-8.0); NEUTROPHILS ABSOLUTE AUTO 3.7 K/mm3 (1.8-7.7); NEUTROPHILS PERCENT AUTO 65.4 % (41.0-71.0); PLATELET COUNT,PLT 136 K/mm3 (150-400); RED BLOOD CELL COUNT 3.64 M/mm3 (4.52-5.90); WHITE BLOOD CELL COUNT,WBC 5.67 K/mm3 (3.9-11.3)
[2023-04-02] MEDS: Levothyroxine 112 MCG Tab PO ONE (13:07)
[2023-04-03 04:55] LABS: BASOPHILS PERCENT AUTO 0.6 % (0.0-1.0); EOSINOPHILS ABSOLUTE AUTO 0.1 K/mm3 (0.0-0.4); HEMATOCRIT 40.5 % (42.0-52.0); HEMOGLOBIN 13.4 gm/dl (14.0-18.0); IMMATURE GRAN ABSOLUTE AUTO 0.07 K/mm3 (0.00-0.05); IMMATURE GRAN PERCENT AUTO 1.1 % (0.0-0.4); LYMPHOCYTES ABSOLUTE AUTO 1.6 K/mm3 (1.0-4.8); LYMPHOCYTES PERCENT AUTO 24.1 % (24.0-44.0); MEAN CORPUSCULAR HEMOGLOBIN 33.1 pg (28.0-32.0); MEAN CORPUSCULAR HGB CONC 33.1 g/dl (32.0-36.0); MEAN PLATELET VOLUME 8.6 fl (9.4-12.4); MONOCYTES ABSOLUTE AUTO 0.6 K/mm3 (0.0-0.8); MONOCYTES PERCENT AUTO 8.5 % (0.0-8.0); NEUTROPHILS ABSOLUTE AUTO 4.1 K/mm3 (1.8-7.7); NEUTROPHILS PERCENT AUTO 63.7 % (41.0-71.0); PLATELET COUNT,PLT 152 K/mm3 (150-400); RED BLOOD CELL COUNT 4.05 M/mm3 (4.52-5.90); WHITE BLOOD CELL COUNT,WBC 6.48 K/mm3 (3.9-11.3)
[2023-04-03 05:16] LABS: ANION GAP 8.9 (5-15); BUN/CREATININE RATIO 24.2 (14-18); CALCIUM 9.3 mg/dL (8.5-10.1); CREATININE 1.2 mg/dL (0.7-1.3); EST CRCL DRUG DOSING (CG) 68.85 mL/min; POTASSIUM,K 3.9 mEq/L (3.5-5.1)
[2023-04-03] MEDS: Levothyroxine 112 MCG Tab PO SCH (06:31)
[2023-04-03] MEDS: Furosemide 20 MG/2 ML VIAL IVPUSH ONE (08:16)
[2023-04-04 04:44] LABS: BASOPHILS ABSOLUTE AUTO 0.1 K/mm3 (0.0-0.2); BASOPHILS PERCENT AUTO 0.8 % (0.0-1.0); EOSINOPHILS ABSOLUTE AUTO 0.1 K/mm3 (0.0-0.4); EOSINOPHILS PERCENT AUTO 1.5 % (0.0-6.0); HEMOGLOBIN 14.4 gm/dl (14.0-18.0); IMMATURE GRAN ABSOLUTE AUTO 0.07 K/mm3 (0.00-0.05); IMMATURE GRAN PERCENT AUTO 0.9 % (0.0-0.4); LYMPHOCYTES ABSOLUTE AUTO 2.2 K/mm3 (1.0-4.8); LYMPHOCYTES PERCENT AUTO 28.1 % (24.0-44.0); MEAN CORPUSCULAR HEMOGLOBIN 33.4 pg (28.0-32.0); MEAN CORPUSCULAR HGB CONC 32.7 g/dl (32.0-36.0); MEAN CORPUSCULAR VOLUME 102.1 fl (83.0-99.0); MEAN PLATELET VOLUME 8.3 fl (9.4-12.4); MONOCYTES ABSOLUTE AUTO 0.8 K/mm3 (0.0-0.8); MONOCYTES PERCENT AUTO 9.5 % (0.0-8.0); NEUTROPHILS ABSOLUTE AUTO 4.7 K/mm3 (1.8-7.7); NEUTROPHILS PERCENT AUTO 59.2 % (41.0-71.0); PLATELET COUNT,PLT 147 K/mm3 (150-400); RED BLOOD CELL COUNT 4.31 M/mm3 (4.52-5.90); WHITE BLOOD CELL COUNT,WBC 7.91 K/mm3 (3.9-11.3)
[2023-04-04 05:16] LABS: ANION GAP 9.5 (5-15); BUN/CREATININE RATIO 27.9 (14-18); CALCIUM 9.7 mg/dL (8.5-10.1); CREATININE 1.4 mg/dL (0.7-1.3); EST CRCL DRUG DOSING (CG) 59.01 mL/min
[2023-04-04 05:33] LABS: POTASSIUM,K 4.5 mEq/L (3.5-5.1)
== END 2023-04-04 14:00 | disposition home or self-care (01) | DRG 194 ==
LOC: JD.ED 13:27 → JD.MS 16:54 → JD.ICU 17:18
PROVIDERS: ADMIT Internal Medicine; ATTEND Internal Medicine
DX: I11.0 Hypertensive heart disease with heart failure (principal); J96.21 Acute and chronic respiratory failure with hypoxia; I42.6 Alcoholic cardiomyopathy; E66.01 Morbid (severe) obesity due to excess calories; F17.210 Nicotine dependence, cigarettes, uncomplicated; E87.1 Hypo-osmolality and hyponatremia; I48.20 Chronic atrial fibrillation, unspecified; I50.33 Acute on chronic diastolic (congestive) heart failure; L85.3 Xerosis cutis; F10.229 Alcohol dependence with intoxication, unspecified; J44.0 Chronic obstructive pulmonary disease with (acute) lower respiratory infection; F32.A Depression, unspecified; J18.9 Pneumonia, unspecified organism; E78.00 Pure hypercholesterolemia, unspecified; Y90.0 Blood alcohol level of less than 20 mg/100 ml; E03.9 Hypothyroidism, unspecified; G47.33 Obstructive sleep apnea (adult) (pediatric); Z79.01 Long term (current) use of anticoagulants; Z79.899 Other long term (current) drug therapy; Z98.890 Other specified postprocedural states; Z88.8 Allergy status to other drugs, medicaments and biological substances; Z91.148 Patient's other noncompliance with medication regimen for other reason; Z68.29 Body mass index [BMI] 29.0-29.9, adult; Z11.52 Encounter for screening for COVID-19
CPT/HCPCS: 0241U; 36415; 71045; 71045-26; 80048; 80053; 80307; 83735; 83880; 84100; 84439; 84443; 84484; 85025; 86140; 93005; 93010; 94640; 94667; 94668; 94761; 96365; 96375; 97161-GP; 99222; 99232; 99239; 99285; 99285-25; A9270-GY; J0696; J1940; J3490; J7620-GY